=== PATIENT | male | born 1965 | race Caucasian/White ===

== ENCOUNTER → 2017-06-20 | Outpatient (CLI) | payer OTHER ==
--- NOTE | 2017-06-20 15:26 | US ---
EXAMINATION TYPE: US kidneys/renal and bladder DATE OF EXAM: 06/20/2017 COMPARISON: NONE CLINICAL HISTORY: R10.9 LT FLANK PAIN. EXAM MEASUREMENTS: Right Kidney: 12.0 x 5.4 x 4.9 cm Left Kidney: 12.5 x 5.9 x 5.5 cm Post Void Residual Volume: 71.9 mL Right Kidney: No hydronephrosis; lower pole cyst =1.6 x 1.9 x 1.8cm Left Kidney: No hydronephrosis or masses seen Bladder: wnl Bilateral Jets seen: Yes Normal Post Void Residual: No, as is >50.0ml There is no evidence for hydronephrosis at this point in time. No nephrolithiasis is seen. No solid masses are identified. The urinary bladder is anechoic. Bilateral ureteral jets are seen. IMPRESSION: Simple cyst lower pole right kidney. Increased postvoid residual.
--- NOTE | 2017-06-21 08:38 | XR ---
EXAMINATION TYPE: XR lumbosacral spine min 4V DATE OF EXAM: 06/20/2017 CLINICAL HISTORY: Left flank and back pain TECHNIQUE: Frontal, lateral, and oblique images of the lumbar spine are obtained. COMPARISON: None FINDINGS: There are 5 lumbar type vertebral bodies identified with partial sacralization of the L5 v ertebral body and hypoplastic 12th ribs. The lumbar spine shows satisfactory alignment without evide nce of acute fracture or dislocation. Vertebral body heights and disk space heights are within normal limits. Minimal multilevel degenerative changes of the lumbar spine are displayed as small anterior osteophytes and facet arthropathy. The oblique images demonstrate at least mild neural foraminal narr owing at L2-L3 and L4-L5 on the left. The overlying soft tissue appears unremarkable. IMPRESSION: 1. No acute fracture or malalignment is seen in the lumbar spine. 2. Minimal multilevel degenerative disc disease of the lumbar spine.
== END | disposition home or self-care (01) ==
LOC: RADUSWWP 13:59
PROVIDERS: ATTEND Internal Medicine
DX: N28.1 Cyst of kidney, acquired (principal); M54.5 Low back pain
CPT/HCPCS: 72110; 76770

== ENCOUNTER → 2017-06-30 | Outpatient (CLI) | payer OTHER ==
--- NOTE | 2017-06-30 09:32 | CT ---
EXAMINATION TYPE: CT abdomen pelvis w con DATE OF EXAM: 06/30/2017 COMPARISON: NONE INDICATION: Left mid/lower abdominal pain, radiates into back DLP: 850.6 mGycm, Automated exposure control for dose reduction was used. CONTRAST: 100 mL of Omnipaque 300. Study performed with Oral Contrast TECHNIQUE: Axial images were obtained from above the diaphragm to the pubic rami in the axial plane a t 5 mm thick sections. Reconstructed images are reviewed on the computer in the coronal plane. FINDINGS: Limited CT sections are obtained the lung bases. The lung bases are clear. CT ABDOMEN: Liver: Normal Spleen: Normal Pancreas: Normal Adrenal glands: The adrenal glands are normal. Gallbladder: Normal Kidneys: No masses are evident. No hydronephrosis is present. There is a 1.6 cm cyst measuring 10 H [place] units anterior mid inferior pole right kidney. Delayed images were obtained through the ki dneys, which remain unremarkable. Aorta: Vascular calcification is within the aorta. Inferior vena cava: Normal. CT PELVIS: Loops of bowel within the abdomen and pelvis are normal. There are loops of bowel which are incom pletely distended or lack oral contrast limiting their evaluation. Appendix: Normal as visualized. Urinary bladder: Normal. Genitourinary structures: Prostate is prominent. A few calcifications are present. Osseous structures: No suspicious lytic or sclerotic lesions. Facet hypertrophy is present. IMPRESSIONS: 1. No suspicious acute changes to account for left mid or lower quadrant pain.
== END | disposition home or self-care (01) ==
LOC: RADCTMAIN 07:34
PROVIDERS: ATTEND Internal Medicine
DX: R10.12 Left upper quadrant pain (principal); R10.32 Left lower quadrant pain
CPT/HCPCS: 74177; Q9967

== ENCOUNTER 2018-01-31 18:23 | Observation (INO) | payer OTHER ==
--- NOTE | 2018-01-31 19:25 | ED ---
General Adult HPI - General Chief complaint: Shortness of Breath Stated complaint: Sob/dizzy/shoulder pain Time Seen by Provider: 01/31/18 18:52 Source: patient, RN notes reviewed, old records reviewed Mode of arrival: wheelchair Limitations: no limitations - History of Present Illness Initial comments: 52-year-old male presents for evaluation of dyspnea, chest tightness, and right shoulder pain. Patient's right shoulder pain is dull, been constant for the past 2 days. Denies any trauma. Chest tightness has also been present for the past 48 hours. This is nonexertional, unchanged by activity. He does report some mild dyspnea. Denies significant central chest pain. No history of CAD. He does have family history of CAD and is a current smoker. - Related Data Home Medications Medication Instructions Recorded Confirmed Ascorbic Acid [Vitamin C] 500 mg PO DAILY 04/22/16 01/31/18 Aspirin EC [Ecotrin Low Dose] 81 mg PO DAILY 04/22/16 01/31/18 Atorvastatin [Lipitor] 10 mg PO HS 04/22/16 01/31/18 Allergies Allergy/AdvReac Type Severity Reaction Status Date / Time No Known Allergies Allergy Verified 01/31/18 19:44 Review of Systems ROS Statement: Those systems with pertinent positive or pertinent negative responses have been documented in the HPI. ROS Other: All systems not noted in ROS Statement are negative. Past Medical History Past Medical History: Hyperlipidemia History of Any Multi-Drug Resistant Organisms: None Reported Past Surgical History: Orthopedic Surgery Additional Past Surgical History / Comment(s): elbow Past Psychological History: Anxiety Smoking Status: Current every day smoker Past Alcohol Use History: Occasional Past Drug Use History: None Reported General Exam Limitations: no limitations General appearance: alert, in no apparent distress Head exam: Present: atraumatic, normocephalic Eye exam: Present: normal appearance, PERRL ENT exam: Present: normal exam Neck exam: Present: normal inspection. Absent: tenderness, meningismus Respiratory exam: Present: normal lung sounds bilaterally. Absent: respiratory distress, wheezes Cardiovascular Exam: Present: regular rate, normal rhythm GI/Abdominal exam: Present: soft. Absent: distended, tenderness, guarding, rebound Extremities exam: Present: normal inspection, normal capillary refill. Absent: pedal edema Back exam: Present: normal inspection, full ROM Neurological exam: Present: alert, oriented X3, CN II-XII intact. Absent: motor sensory deficit Psychiatric exam: Present: normal affect, normal mood Skin exam: Present: warm, dry, intact. Absent: cyanosis, diaphoretic Course Vital Signs 01/31/18 01/31/18 18:49 19:42 Temperature 98.7 F Pulse Rate 64 Pulse Rate [ 62 Negative Cutter ] Respiratory 20 Rate Blood Pressure 144/95 O2 Sat by Pulse 99 Oximetry EKG Findings - EKG Comments: EKG Findings:: EKG: Normal sinus rhythm, rate of 63, TX interval 166, QRS duration 92, QTC 417, no ST segment elevation or depression Medical Decision Making - Medical Decision Making 52-year-old male presenting with chest tightness, right shoulder pain, and mild dyspnea. Patient is a current smoker, positive family history of CAD and past medical history of hypercholesterolemia. EKG is negative for definitive signs of ischemia, chest x-ray negative for pneumonia or acute cardiopulmonary disease. CBC and CMP are within normal limits. Troponin is negative, d-dimer is within normal limits. Given the patient's risk factors, he will be placed in observation for serial cardiac enzymes, telemetry, and cardiology consultation. - Lab Data Result diagrams: 01/31/18 19:36 01/31/18 19:36 Lab Results 01/31/18 01/31/18 01/31/18 Range/Units 19:36 19:36 19:36 WBC 10.1 (3.8-10.6) k/uL RBC 5.56 (4.30-5.90) m/uL Hgb 16.8 (13.0-17.5) gm/dL Hct 48.0 (39.0-53.0) % MCV 86.5 (80.0-100.0) fL MCH 30.2 (25.0-35.0) pg MCHC 34.9 (31.0-37.0) g/dL RDW 13.1 (11.5-15.5) % Plt Count 275 (150-450) k/uL Neutrophils % 56 % Lymphocytes % 33 % Monocytes % 6 % Eosinophils % 3 % Basophils % 1 % Neutrophils # 5.6 (1.3-7.7) k/uL Lymphocytes # 3.3 (1.0-4.8) k/uL Monocytes # 0.6 (0-1.0) k/uL Eosinophils # 0.3 (0-0.7) k/uL Basophils # 0.1 (0-0.2) k/uL PT (9.0-12.0) sec INR (<1.2) APTT (22.0-30.0) sec D-Dimer (<0.60) mg/L FEU Sodium 140 (137-145) mmol/L Potassium 4.2 (3.5-5.1) mmol/L Chloride 106 (98-107) mmol/L Carbon Dioxide 25 (22-30) mmol/L Anion Gap 9 mmol/L BUN 17 (9-20) mg/dL Creatinine 0.98 (0.66-1.25) mg/dL Est GFR (CKD-EPI)AfAm >90 (>60 ml/min/1.73 sqM) Est GFR (CKD-EPI)NonAf 90 (>60 ml/min/1.73 sqM) Glucose 90 (74-99) mg/dL Calcium 9.6 (8.4-10.2) mg/dL Magnesium 2.0 (1.6-2.3) mg/dL Total Bilirubin 1.2 (0.2-1.3) mg/dL AST 31 (17-59) U/L ALT 50 (21-72) U/L Alkaline Phosphatase 50 (38-126) U/L Total Creatine Kinase 103 (55-170) U/L CK-MB (CK-2) 1.2 (0.0-2.4) ng/mL CK-MB (CK-2) Rel Index 1.2 Troponin I <0.012 (0.000-0.034) ng/mL NT-Pro-B Natriuret Pep pg/mL Total Protein 7.2 (6.3-8.2) g/dL Albumin 4.3 (3.5-5.0) g/dL 01/31/18 01/31/18 Range/Units 19:36 19:36 WBC (3.8-10.6) k/uL RBC (4.30-5.90) m/uL Hgb (13.0-17.5) gm/dL Hct (39.0-53.0) % MCV (80.0-100.0) fL MCH (25.0-35.0) pg MCHC (31.0-37.0) g/dL RDW (11.5-15.5) % Plt Count (150-450) k/uL Neutrophils % % Lymphocytes % % Monocytes % % Eosinophils % % Basophils % % Neutrophils # (1.3-7.7) k/uL Lymphocytes # (1.0-4.8) k/uL Monocytes # (0-1.0) k/uL Eosinophils # (0-0.7) k/uL Basophils # (0-0.2) k/uL PT 9.7 (9.0-12.0) sec INR 1.0 (<1.2) APTT 23.2 (22.0-30.0) sec D-Dimer 0.33 (<0.60) mg/L FEU Sodium (137-145) mmol/L Potassium (3.5-5.1) mmol/L Chloride (98-107) mmol/L Carbon Dioxide (22-30) mmol/L Anion Gap mmol/L BUN (9-20) mg/dL Creatinine (0.66-1.25) mg/dL Est GFR (CKD-EPI)AfAm (>60 ml/min/1.73 sqM) Est GFR (CKD-EPI)NonAf (>60 ml/min/1.73 sqM) Glucose (74-99) mg/dL Calcium (8.4-10.2) mg/dL Magnesium (1.6-2.3) mg/dL Total Bilirubin (0.2-1.3) mg/dL AST (17-59) U/L ALT (21-72) U/L Alkaline Phosphatase (38-126) U/L Total Creatine Kinase (55-170) U/L CK-MB (CK-2) (0.0-2.4) ng/mL CK-MB (CK-2) Rel Index Troponin I (0.000-0.034) ng/mL NT-Pro-B Natriuret Pep 32 pg/mL Total Protein (6.3-8.2) g/dL Albumin (3.5-5.0) g/dL Disposition Clinical Impression: Chest pain Disposition: ADMITTED IP TO THIS [facility] Condition: Stable Is patient prescribed a controlled substance at d/c from ED?: No Referrals: Ben Waller MD [Primary Care Provider] - 1-2 days Time of Disposition: 21:18 Decision to Admit Reason: Admit from EC Decision Date: 01/31/18 Decision Time: 21:18
[2018-01-31 19:48] LABS: Basophils # (A) 0.1 k/uL (0-0.2); Basophils % (A) 1 %; Eosinophils # (A) 0.3 k/uL (0-0.7); Eosinophils % (A) 3 %; HGB 16.8 gm/dL (13.0-17.5); Lymphocytes # (A) 3.3 k/uL (1.0-4.8); Lymphocytes % (A) 33 %; MCH 30.2 pg (25.0-35.0); MCHC 34.9 g/dL (31.0-37.0); MCV 86.5 fL (80.0-100.0); Mean Platelet Volume 6.6; Monocytes # (A) 0.6 k/uL (0-1.0); Monocytes % (A) 6 %; Neutrophils # (A) 5.6 k/uL (1.3-7.7); Neutrophils % (A) 56 %; Platelet Count 275 k/uL (150-450); RBC 5.56 m/uL (4.30-5.90); RDW 13.1 % (11.5-15.5); WBC 10.1 k/uL (3.8-10.6)
[2018-01-31 19:56] LABS: ALT 50 U/L (21-72); AST 31 U/L (17-59); Albumin 4.3 g/dL (3.5-5.0); Alkaline Phosphatase 50 U/L (38-126); Anion Gap 9 mmol/L; Blood Urea Nitrogen 17 mg/dL (9-20); Calcium 9.6 mg/dL (8.4-10.2); Carbon Dioxide 25 mmol/L (22-30); Chloride 106 mmol/L (98-107); Glucose 90 mg/dL (74-99); Potassium 4.2 mmol/L (3.5-5.1); Sodium 140 mmol/L (137-145); Total Bilirubin 1.2 mg/dL (0.2-1.3); Total Protein 7.2 g/dL (6.3-8.2)
--- NOTE | 2018-01-31 20:00 | XR ---
EXAMINATION TYPE: XR chest 2V DATE OF EXAM: 01/31/2018 COMPARISON: January 14, 2015 HISTORY: Chest pain TECHNIQUE: Frontal and lateral views of the chest are obtained. FINDINGS: Heart and mediastinum are normal. Lungs are clear. Diaphragm is normal. Bony thorax appear s normal. IMPRESSION: Normal chest. No change.
[2018-01-31 20:01] LABS: Creatine Kinase 103 U/L (55-170)
[2018-01-31 20:08] LABS: D-Dimer 0.33 mg/L FEU (<0.60); Partial Thromboplastin Time 23.2 sec (22.0-30.0); Prothrombin Time 9.7 sec (9.0-12.0)
[2018-01-31 20:14] LABS: Creatine Kinase MB 1.2 ng/mL (0.0-2.4); Troponin I <0.012 ng/mL (0.000-0.034)
[2018-01-31] MEDS ORDERED: SODIUM CHLORIDE 0.9% 500 ML IV ONE (21:14)
[2018-01-31] MEDS ORDERED: ASPIRIN 325 MG TAB PO STA (21:14)
[2018-01-31] MEDS ORDERED: NALOXONE 0.4 MG/ML 1 ML VIAL IV PRN (21:14)
[2018-01-31] MEDS ORDERED: ONDANSETRON 4 MG/2 ML VIAL IVP PRN (21:14)
[2018-01-31 22:21] VITALS: BMI 26.9
[2018-01-31] MEDS ORDERED: ATORVASTATIN 10 MG TAB PO STA (22:25)
[2018-01-31] MEDS: ACETAMINOPHEN TAB 325 MG TAB PO PRN (22:44)
[2018-01-31] MEDS: NICOTINE 21MG/24HR PATCH TRANSDERM SCH (22:44)
[2018-01-31] MEDS ORDERED: MORPHINE SULFATE 2 MG/ML SYRINGE IVP PRN (23:55)
[2018-02-01 01:55] LABS: Creatine Kinase 84 U/L (55-170)
[2018-02-01 02:05] LABS: Creatine Kinase MB 1.3 ng/mL (0.0-2.4)
[2018-02-01 02:07] LABS: Troponin I <0.012 ng/mL (0.000-0.034)
[2018-02-01 07:47] LABS: Creatine Kinase 77 U/L (55-170)
[2018-02-01 07:56] VITALS: RESP 18
[2018-02-01 07:58] LABS: Creatine Kinase MB 1.2 ng/mL (0.0-2.4); Troponin I <0.012 ng/mL (0.000-0.034)
[2018-02-01] MEDS ORDERED: ASPIRIN 81 MG PO SCH (09:00)
[2018-02-01 09:22] LABS: ALT 45 U/L (21-72); AST 33 U/L (17-59); Albumin 3.6 g/dL (3.5-5.0); Alkaline Phosphatase 45 U/L (38-126); Anion Gap 8 mmol/L; Basophils # (A) 0.1 k/uL (0-0.2); Basophils % (A) 1 %; Blood Urea Nitrogen 16 mg/dL (9-20); Calcium 9.3 mg/dL (8.4-10.2); Carbon Dioxide 25 mmol/L (22-30); Chloride 108 mmol/L (98-107); Eosinophils # (A) 0.3 k/uL (0-0.7); Eosinophils % (A) 4 %; Glucose 106 mg/dL (74-99); HGB 16.3 gm/dL (13.0-17.5); Lymphocytes # (A) 2.1 k/uL (1.0-4.8); Lymphocytes % (A) 28 %; MCH 29.2 pg (25.0-35.0); MCHC 33.2 g/dL (31.0-37.0); MCV 87.9 fL (80.0-100.0); Mean Platelet Volume 7.1; Monocytes # (A) 0.5 k/uL (0-1.0); Monocytes % (A) 7 %; Neutrophils # (A) 4.3 k/uL (1.3-7.7); Neutrophils % (A) 58 %; Platelet Count 254 k/uL (150-450); Potassium 4.6 mmol/L (3.5-5.1); RBC 5.57 m/uL (4.30-5.90); RDW 13.3 % (11.5-15.5); Sodium 141 mmol/L (137-145); Total Bilirubin 1.4 mg/dL (0.2-1.3); Total Protein 6.4 g/dL (6.3-8.2); WBC 7.5 k/uL (3.8-10.6)
[2018-02-01] MEDS ORDERED: ALPRAZolam 0.5 MG TAB PO PRN (09:43)
[2018-02-01] MEDS ORDERED: ALPRAZolam 0.25 MG TAB PO PRN (09:43)
[2018-02-01] MEDS ORDERED: NITROGLYCERIN SL TABS 0.4 MG TAB SUBLINGUAL PRN (09:43)
[2018-02-01] MEDS ORDERED: SODIUM CHLORIDE 0.9% 1,000 ML in EMPTY BAG 1 BAG IV ONE (09:43)
[2018-02-01] MEDS ORDERED: ASPIRIN 325 MG TAB PO ONE (10:00)
[2018-02-01] MEDS: NICOTINE 21MG/24HR PATCH TRANSDERM SCH (10:01)
--- NOTE | 2018-02-01 10:15 | P.HPIM ---
History of Present Illness H&P Date: 02/01/18 Chief Complaint: Chest Pain This is a 52-year-old male patient who presented to the emergency room with intermittent chest pain that has been occurring since Monday. Patient said states that he's also been having dyspnea with the pain. Patient states his father had open heart surgery at 50. Patient's medical history includes smoker , hyperlipidemia and anxiety. Chest x-ray completed emergency room showing normal chest no change. Troponins have been negative. EKG completed showing normal sinus rhythm. Normal EKG. D-dimer 0.33. Cardiology services consulted. 2-D echo has been ordered. Per cardiology patient will have cardiac catheterization today. At this time patient is continuing to have intermittent chest pain. Does complain of some dyspnea. Patient denies nausea vomiting or diarrhea. Patient denies any urinary burning or frequency. Review of Systems Please refer to HPI otherwise unremarkable Past Medical History Past Medical History: Hyperlipidemia History of Any Multi-Drug Resistant Organisms: None Reported Past Surgical History: Orthopedic Surgery Additional Past Surgical History / Comment(s): elbow Past Anesthesia/Blood Transfusion Reactions: No Reported Reaction Smoking Status: Current every day smoker - Past Family History Mother Family Medical History: No Reported History Father Additional Family Medical History / Comment(s): Heart blockage and Parkinsons. Quadruple bypass surgery Medications and Allergies Home Medications Medication Instructions Recorded Confirmed Type Ascorbic Acid [Vitamin C] 500 mg PO DAILY 04/22/16 01/31/18 History Aspirin EC [Ecotrin Low Dose] 81 mg PO DAILY 04/22/16 01/31/18 History Atorvastatin [Lipitor] 10 mg PO HS 04/22/16 01/31/18 History Ranitidine HCl [Zantac] 150 mg PO BID 01/31/18 01/31/18 History Allergies Allergy/AdvReac Type Severity Reaction Status Date / Time No Known Allergies Allergy Verified 01/31/18 22:11 Physical Exam Vitals: Vital Signs Temp Pulse Pulse Pulse Resp BP BP 02/01/18 07:35 97.9 F 48 L 18 142/74 02/01/18 04:00 16 02/01/18 03:29 97.7 F 60 16 138/82 02/01/18 00:00 16 01/31/18 22:30 16 01/31/18 22:09 97.4 F L 55 L 16 156/83 01/31/18 21:38 57 L 18 147/89 01/31/18 19:42 62 01/31/18 18:49 98.7 F 64 20 144/95 Pulse Ox 02/01/18 07:35 97 02/01/18 04:00 02/01/18 03:29 97 02/01/18 00:00 01/31/18 22:30 01/31/18 22:09 96 01/31/18 21:38 96 01/31/18 19:42 01/31/18 18:49 99 Intake and Output 01/31/18 02/01/18 02/01/18 22:59 06:59 14:59 Intake Total 500 Balance 500 Intake: Amount of Fluid Infused ( 500 ml) Other: # Voids 1 1 Weight 95.2 kg Head normocephalic Neck supple Lungs clear to auscultation bilaterally no wheezing or crackles Heart regular rate and rhythm S1-S2, no rub or gallop Abdomen is soft nontender nondistended positive bowel sounds no hepatosplenomegaly Extremities no edema Neuro alert and orientated to 3 Results CBC & Chem 7: 02/01/18 06:48 02/01/18 06:48 Labs: Abnormal Lab Results - Last 24 Hours (Table) 02/01/18 Range/Units 06:48 Chloride 108 H (98-107) mmol/L Glucose 106 H (74-99) mg/dL Total Bilirubin 1.4 H (0.2-1.3) mg/dL Thrombosis Risk Factor Assmnt - Choose All That Apply Each Factor Represents 1 point: Age 41-60 years Thrombosis Risk Factor Assessment Total Risk Factor Score: 1 Thrombosis Risk Factor Assessment Level: Low Risk Assessment and Plan Assessment: 1. Chest pain and dyspnea. Chest x-ray negative. EKG showing normal sinus rhythm. Troponins negative. Patient does have a significant family history of coronary artery disease. Cardiology services following. 2-D echo has been ordered. Patient will have cardiac catheterization today per cardiology 2. Nicotine dependence. Patient educated greater than 3 minutes on smoking cessation. Nicotine patch has been ordered 3. Hyperlipidemia. Continue Lipitor If Cardiac catheterization is clean patient may be able to go home later today per cardiology. GI prophylaxis Pepcid Time with Patient: Greater than 30 (Greater than 60% of the total time spent in counseling and coordination of care. I performed an examination of the patient and discussed their management with the Nurse Practitioner. I have reviewed the Nurse Practitioner's notes and agree with the documented findings and plan of care)
--- NOTE | 2018-02-01 10:22 | P.CRDCN ---
History of Present Illness History of present illness: Mr. Quintanilla is a pleasant 52-year-old male past medical history significant for dyslipidemia, anxiety and chronic nicotine dependence. He denies personal history of coronary artery disease however his father had quadruple bypass surgery a the age of 51. We have been asked to see him in consultation for chest pain. 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 The symptoms had no specific aggravating factor. He states he had these symptoms again intermittently over the next couple of days. The pain in the right shoulder has been constant since it first came on Monday. They seemed to come on when he was exerting himself but didn't improve when he sat down to rest. He was attributing them to the heat. However, they continued to intermittent return over the next couple of days. Denies palpitations, nausea, vomiting or diaphoresis. He does also feel as if he has been increasing hot the last couple days but again attributed that to the heat. EKG reveals sinus mechanism with no acute ST or T wave abnormalities noted. Chest x-ray is negative for an acute cardiopulmonary process. Laboratory data reviewed, hemoglobin 16.3, platelets 254, d-dimer 0.33, sodium 141, potassium 4.6, creatinine 0.9 to, magnesium 2.0, cardiac enzymes negative 3, NT proBNP is 32. Patient states he has never had a stress test, echocardiogram and heart catheterization in the past. Review of Systems At the time of my exam: CONSTITUTIONAL: Denies fever. Denies chills. EYES: Denies blurred vision. Denies vision changes. Denies eye pain. EARS, NOSE, MOUTH & THROAT: Denies headache. Denies sore throat. Denies ear pain. CARDIOVASCULAR: Denies chest pain. Denies shortness of breath. Denies orthopnea. Denies PND. Denies palpitations. RESPIRATORY: Denies cough. GASTROINTESTINAL: Denies abdominal pain. Denies diarrhea. Denies constipation. Denies nausea. Denies vomiting. MUSCULOSKELETAL: Denies myalgias. INTEGUMENTARY: Denies pruitis. Denies rash. NEUROLOGIC: Denies numbness. Denies tingling. Denies weakness. PSYCHIATRIC: Denies anxiety. Denies depression. ENDOCRINE: Denies fatigue. Denies weight change. Denies polydipsia. Denies polyurina. GENITOURINARY: Denies burning, hematuria or urgency with micturation. HEMATOLOGIC: Denies history of anemia. Denies bleeding. Past Medical History Past Medical History: Hyperlipidemia History of Any Multi-Drug Resistant Organisms: None Reported Past Surgical History: Orthopedic Surgery Additional Past Surgical History / Comment(s): elbow Past Anesthesia/Blood Transfusion Reactions: No Reported Reaction Smoking Status: Current every day smoker - Past Family History Mother Family Medical History: No Reported History Father Additional Family Medical History / Comment(s): Heart blockage and Parkinsons. Quadruple bypass surgery Medications and Allergies Home Medications Medication Instructions Recorded Confirmed Type Ascorbic Acid [Vitamin C] 500 mg PO DAILY 04/22/16 01/31/18 History Aspirin EC [Ecotrin Low Dose] 81 mg PO DAILY 04/22/16 01/31/18 History Atorvastatin [Lipitor] 10 mg PO HS 04/22/16 01/31/18 History Ranitidine HCl [Zantac] 150 mg PO BID 01/31/18 01/31/18 History Allergies Allergy/AdvReac Type Severity Reaction Status Date / Time No Known Allergies Allergy Verified 01/31/18 22:11 Physical Exam Vitals: Vital Signs Temp Pulse Pulse Pulse Resp BP BP 02/01/18 07:35 97.9 F 48 L 18 142/74 02/01/18 04:00 16 02/01/18 03:29 97.7 F 60 16 138/82 02/01/18 00:00 16 01/31/18 22:30 16 01/31/18 22:09 97.4 F L 55 L 16 156/83 01/31/18 21:38 57 L 18 147/89 01/31/18 19:42 62 01/31/18 18:49 98.7 F 64 20 144/95 Pulse Ox 02/01/18 07:35 97 02/01/18 04:00 02/01/18 03:29 97 02/01/18 00:00 01/31/18 22:30 01/31/18 22:09 96 01/31/18 21:38 96 01/31/18 19:42 01/31/18 18:49 99 Intake and Output 09/19/18 09/20/18 09/20/18 22:59 06:59 14:59 Intake Total 500 Balance 500 Intake: Amount of Fluid Infused ( 500 ml) Other: # Voids 1 1 Weight 95.2 kg Blood pressure 142/74 heart rate 48 afebrile maintaining oxygen saturation on room air GENERAL: This is a 52-year-old male in no apparent distress at the time of my examination. HEENT: Head is atraumatic, normocephalic. Pupils are equal, round. Sclerae anicteric. Conjunctivae are clear. Mucous membranes of the mouth are moist. Neck is supple. There is no jugular venous distention. No carotid bruit is heard. LUNGS: Clear to auscultation no wheezes, rales or rhonchi. No chest wall tenderness is noted on palpation or with deep breathing. HEART: Regular rate and rhythm without murmurs, rubs or gallops. S1 and S2 heard. ABDOMEN: Soft, nontender. Bowel sounds are heard. No organomegaly noted. EXTREMITIES: No evidence of peripheral edema and no calf tenderness noted. VASCULAR: Radial and dorsalis pedis pulses palpated, no evidence of clubbing. NEUROLOGIC: Patient is awake, alert and oriented x3. Results 02/01/18 06:48 02/01/18 06:48 Cardiac Enzymes 01/31/18 01/31/18 02/01/18 Range/Units 19:36 19:36 00:54 AST 31 (17-59) U/L CK-MB (CK-2) 1.2 1.3 (0.0-2.4) ng/mL Troponin I <0.012 <0.012 (0.000-0.034) ng/mL 02/01/18 Range/Units 06:48 AST (17-59) U/L CK-MB (CK-2) 1.2 (0.0-2.4) ng/mL Troponin I <0.012 (0.000-0.034) ng/mL Coagulation 01/31/18 Range/Units 19:36 PT 9.7 (9.0-12.0) sec APTT 23.2 (22.0-30.0) sec CBC 01/31/18 Range/Units 19:36 WBC 10.1 (3.8-10.6) k/uL RBC 5.56 (4.30-5.90) m/uL Hgb 16.8 (13.0-17.5) gm/dL Hct 48.0 (39.0-53.0) % Plt Count 275 (150-450) k/uL Comprehensive Metabolic Panel 01/31/18 Range/Units 19:36 Sodium 140 (137-145) mmol/L Potassium 4.2 (3.5-5.1) mmol/L Chloride 106 (98-107) mmol/L Carbon Dioxide 25 (22-30) mmol/L BUN 17 (9-20) mg/dL Creatinine 0.98 (0.66-1.25) mg/dL Glucose 90 (74-99) mg/dL Calcium 9.6 (8.4-10.2) mg/dL AST 31 (17-59) U/L ALT 50 (21-72) U/L Alkaline Phosphatase 50 (38-126) U/L Total Protein 7.2 (6.3-8.2) g/dL Albumin 4.3 (3.5-5.0) g/dL Current Medications Generic Name Dose Route Start Last Admin Trade Name Fre PRN Reason Stop Dose Admin Acetaminophen 650 mg 01/31/18 21:14 01/31/18 22:44 Tylenol Tab PO 650 mg Q6HR PRN Administration Mild Pain or Fever > 100.5 Aspirin 81 mg 02/01/18 09:00 Aspirin PO DAILY [facility] Atorvastatin Calcium 10 mg 02/01/18 21:00 Lipitor PO HS [facility] Morphine Sulfate 1 mg 01/31/18 23:55 02/01/18 06:13 Morphine Sulfate (Inj) IVP 1 mg Q3H PRN Administration Pain/Discomfort Naloxone HCl 0.2 mg 01/31/18 21:14 Narcan IV Q2M PRN Opioid Reversal Nicotine 1 patch 01/31/18 22:30 01/31/18 22:44 Habitrol 21mg/24hr Patch TRANSDERM 1 patch DAILY [facility] Administration Ondansetron HCl 4 mg 01/31/18 21:14 Zofran IVP Q8HR PRN Nausea And Vomiting Intake and Output 01/31/18 02/01/18 02/01/18 22:59 06:59 14:59 Intake Total 500 Balance 500 Intake: Amount of Fluid Infused ( 500 ml) Other: # Voids 1 1 Weight 95.2 kg 01/31/18 19:36 01/31/18 19:36 Assessment and Plan Assessment: ASSESSMENT Unstable angina Dyslipidemia Chronic nicotine dependence Strong family history of premature coronary artery disease PLAN Obtain 2D echocardiogram and doppler study to assess cardiac structure and function. We recommend proceeding with cardiac catheterization for further assessment of coronary artery disease. I have discussed the risks, benefits and alternative therapies for the above-mentioned procedure and for both sedation/analgesia as well as necessary blood product administration, if indicated, as they pertain to this patient. The patient has indicated understanding and acceptance of the risks and procedures discussed. Questions have been answered appropriately and he is agreeable to proceed with above stated procedure. Further recommendations to follow based on cath findings. Thank you kindly for this consultation. Nurse Practitioner note has been reviewed, I agree with a documented findings and plan of care. Patient was seen and examined.
[2018-02-01] MEDS ORDERED: IV FLUID CONTINUATION 1,000 ML IV ONE (11:04)
[2018-02-01] MEDS ORDERED: fentaNYL (PF) 50 MCG/ML 2 ML AMP ONE (11:10)
[2018-02-01] MEDS ORDERED: MIDAZOLAM 2 MG/2 ML VIAL ONE (11:11)
[2018-02-01] MEDS ORDERED: MIDAZOLAM 2 MG/2 ML VIAL IV ONE (11:16)
[2018-02-01] MEDS ORDERED: fentaNYL (PF) 50 MCG/ML 2 ML AMP IV ONE (11:16)
[2018-02-01] MEDS ORDERED: LIDOCAINE 2% SYG (PF) 100 MG/5 ML MISCELLANE ONE (11:20)
[2018-02-01] MEDS ORDERED: IOPAMIDOL-370 125ML BTL INJ ONE (11:32)
[2018-02-01] MEDS ORDERED: RX INFO: IV CONTRAST WAS GIVEN 1 EACH MISC MISCELLANE PRN (11:41)
[2018-02-01] MEDS ORDERED: SODIUM CHLORIDE 0.9% 1,000 ML IV SCH (11:45)
--- NOTE | 2018-02-01 11:47 | P.PCN ---
Date of Procedure: 02/01/18 Preoperative Diagnosis: Chest tightness and dizziness Postoperative Diagnosis: Normal coronary arteries and normal LV function Procedure(s) Performed: Left heart catheterization with left ventriculography Description of Procedure: HISTORY: This is a 52-year-old gentleman with history of smoking and strong family history of ischemic heart disease who was admitted to the hospital with recurrent episodes of chest tightness and dizziness. His EKGs and cardiac enzymes are negative. He is given the option of having a stress test or cardiac catheterization. Patient and family preferred to have a cardiac catheterization CONSENT:I have discussed the risks, benefits and alternative therapies for the above-mentioned procedure and for both sedation/analgesia as well as necessary blood product administration, if indicated, as they pertain to this patient. The patient has indicated understanding and acceptance of the risks and procedures discussed. PROCEDURE: Patient was brought to the lab in a fasting state. Patient was given some IV sedation. The right groin is infiltrated with lidocaine and right femoral artery was entered using Seldinger technique. A 6-Serbian catheter was left in place and selective coronary arteriography and left ventriculography was performed. Patient tolerated the procedure well. Femoral angiogram was performed and Angio-Seal was applied for hemostasis. No immediate complications were noted and patient was transferred to [facility] in a stable condition Conscious Sedation: Versed 2mg Fentanyl 50 g Duration 16minutes HEMODYNAMICS: The aortic pressure is 130/60. Left ankle end-diastolic pressure is about 12. There was no gradient across the aortic valve SELECTIVE CORONARY ARTERIOGRAPHY: LEFT MAIN: Short and patent THE LEFT ANTERIOR DESCENDING CORONARY ARTERY:. This is a good caliber vessel giving rise to good-sized diagonal branch. The LAD and branches are free of occlusive disease THE LEFT CIRCUMFLEX AND IS CORONARY ARTERY:. This is a good caliber vessel giving rise good-sized OM branch and AV groove segment. There is also second OM branch. The circumflex and branches are free of occlusive disease THE RIGHT CORONARY ARTERY:. This a moderate caliber vessel giving rise to small to moderate caliber PDA and. Free of occlusive disease. This is a codominant vessel LEFT VENTRICULOGRAPHY: Revealed normal-sized cardiac silhouette with good systolic function FINAL IMPRESSION: Normal coronary arteries. Normal LV function PLAN:. Risk factor modification. Further evaluation of symptoms by GI department PROGNOSIS: Good
[2018-02-01 12:23] VITALS: TEMP 97.2
--- NOTE | 2018-02-01 13:03 | ECHOF ---
Referral Reason:cp, sob, dizzy MEASUREMENTS -------- HEIGHT: 182.9 cm WEIGHT: 94.8 kg BP: RVIDd: 3.2 cm (< 3.3) IVSd: 0.9 cm (0.6 - 1.1) LVIDd: 5.4 cm (3.9 - 5.3) LVPWd: 1.2 cm (0.6 - 1.1) IVSs: 1.6 cm LVIDs: 2.6 cm LVPWs: 1.9 cm LAESV Index (A-L): 17.90 ml/m Ao Diam: 3.5 cm (2.0 - 3.7) AV Cusp: 2.3 cm (1.5 - 2.6) LA Diam: 3.8 cm (2.7 - 3.8) MV EXCURSION: 18.395 mm (> 18.000) MV EF SLOPE: 111 mm/s (70 - 150) EPSS: 0.8 cm MV E Fidel: 1.00 m/s MV DecT: 202 ms MV A Fidel: 0.90 m/s MV E/A Ratio: 1.10 RAP: 5.00 mmHg RVSP: 12.32 mmHg FINDINGS -------- Sinus rhythm. This was a technically good study. The left ventricular size is normal. There is borderline concentric left ventricular hypertrophy. Overall left ventricular systolic function is normal with, an EF between 55 - 60 %. The right ventricle is normal in size and function. The left atrium is normal in size. The right atrium is normal in size. The aortic valve is trileaflet, and appears structurally normal. No aortic stenosis or regurgitation. There is trace mitral regurgitation. Trace tricuspid regurgitation present. The right ventricular systolic pressure, as measured by Dopp ler, is 12.32mmHg. Pulmonic valve appears structurally normal. The aortic root size is normal. Normal inferior vena cava with normal inspiratory collapse consistent with estimated right atrial pre ssure of 5 mmHg. The pericardium is normal. CONCLUSIONS -------- 1. Sinus rhythm. 2. This was a technically good study. 3. The left ventricular size is normal. 4. There is borderline concentric left ventricular hypertrophy. 5. Overall left ventricular systolic function is normal with, an EF between 55 - 60 %. 6. The right ventricle is normal in size and function. 7. The left atrium is normal in size. 8. The right atrium is normal in size. 9. The aortic valve is trileaflet, and appears structurally normal. No aortic stenosis or regurgitati on. 10. There is trace mitral regurgitation. 11. Trace tricuspid regurgitation present. 12. The right ventricular systolic pressure, as measured by Doppler, is 12.32mmHg. 13. Pulmonic valve appears structurally normal. 14. The aortic root size is normal. 15. Normal inferior vena cava with normal inspiratory collapse consistent with estimated right atrial pressure of 5 mmHg. 16. The pericardium is normal. DRIVEMATIC MACHINE OPERATOR: Jaleesa Bravo RDCS
--- NOTE | 2018-02-01 13:22 | P.DS ---
Providers Date of admission: 01/31/18 21:14 Expected date of discharge: 02/01/18 Attending physician: Ben Waller Consults: 01/31/18 21:15 Consult Physician Routine Consulting Provider: Mike Cotto Consult Reason/Comments: Chest Pain Do you want consulting provider notified?: Yes Primary care physician: Ben Sridhar [facility] Course: Discharge diagnosis 1. Chest pain and dyspnea. Chest x-ray negative. EKG showing normal sinus rhythm. Troponins negative. Patient does have a significant family history of coronary artery disease. Cardiology services following. 2-D echo has been ordered. Patient will have cardiac catheterization today per cardiology. 2-D echo completed showing EF between the 55-60%. Patient had cardiac catheterization today. Heart catheterization completed showing normal coronary arteries and normal LV function. Patient has been cleared for discharge from cardiology standpoint. Patient to be discharged after postcardiac cath clearance. 2. Nicotine dependence. Patient educated greater than 3 minutes on smoking cessation. Nicotine patch has been ordered. Patient will be discharged home on nicotine patch 3. Hyperlipidemia. Continue Lipitor Hospital course This is a 52-year-old male patient who presented to the emergency room with intermittent chest pain that has been occurring since Monday. Patient said states that he's also been having dyspnea with the pain. Patient states his father had open heart surgery at 50. Patient's medical history includes smoker , hyperlipidemia and anxiety. Chest x-ray completed emergency room showing normal chest no change. Troponins have been negative. EKG completed showing normal sinus rhythm. Normal EKG. D-dimer 0.33. Cardiology services consulted. 2-D echo has been ordered. Per cardiology patient will have cardiac catheterization today. At this time patient is continuing to have intermittent chest pain. Does complain of some dyspnea. Patient denies nausea vomiting or diarrhea. Patient denies any urinary burning or frequency. On 02/01/2018 patient is status post cardiac catheterization. Heart cath completed showing normal coronary arteries and normal LV function. Patient to be cleared for discharge on postcardiac cath clearance. At this time patient denies chest pain or shortness of breath. Patient denies nausea vomiting or diarrhea. Patient denies any urinary symptoms. Patient to follow-up outpatient with cardiology. Patient to follow-up closely with primary care provider. I performed an examination of the patient and discussed their management with the Nurse Practitioner. I have reviewed the Nurse Practitioner's notes and agree with the documented findings and plan of care. Patient Condition at Discharge: Stable Plan - Discharge Summary New Discharge Prescriptions: New Nicotine 21Mg/24Hr Patch [Habitrol] 1 patch TRANSDERM DAILY #30 patch Continue Atorvastatin [Lipitor] 10 mg PO HS Aspirin EC [Ecotrin Low Dose] 81 mg PO DAILY Ascorbic Acid [Vitamin C] 500 mg PO DAILY Ranitidine HCl [Zantac] 150 mg PO BID Discharge Medication List Ascorbic Acid [Vitamin C] 500 mg PO DAILY 04/22/16 [History] Aspirin EC [Ecotrin Low Dose] 81 mg PO DAILY 04/22/16 [History] Atorvastatin [Lipitor] 10 mg PO HS 04/22/16 [History] Ranitidine HCl [Zantac] 150 mg PO BID 01/31/18 [History] Nicotine 21Mg/24Hr Patch [Habitrol] 1 patch TRANSDERM DAILY #30 patch 02/01/18 [ Rx] Follow up Appointment(s)/Referral(s): Ben Waller MD [Primary Care Provider] - 1-2 days Peter Larson MD [STAFF PHYSICIAN] - 02/09/18 10:30 am Patient Instructions/Handouts: *Surgery [facility] - After Heart Catheterization - [facility] [employer] Instructions, Chest Pain (ED) Care Plan Goals (MU): Diet heart healthy Discharge Disposition: HOME SELF-CARE
[2018-02-01] MEDS: ACETAMINOPHEN TAB 325 MG TAB PO PRN (14:01)
[2018-02-01 15:23] VITALS: BP 123/72; PULSE 60
[2018-02-01] MEDS ORDERED: ATORVASTATIN 10 MG TAB PO SCH (21:00)
[2018-02-02] MEDS ORDERED: FAMOTIDINE 20 MG TAB PO SCH (09:00)
[2018-02-02] MEDS ORDERED: ASPIRIN 81 MG PO SCH (09:00)
== END 2018-02-01 18:50 | disposition home or self-care (01) ==
LOC: EC 18:23 → 3OBS 21:14
PROVIDERS: ADMIT Internal Medicine; ATTEND Internal Medicine
DX: R07.89 Other chest pain (principal); M25.511 Pain in right shoulder; R06.00 Dyspnea, unspecified; R42 Dizziness and giddiness; E78.5 Hyperlipidemia, unspecified; F41.9 Anxiety disorder, unspecified; F17.200 Nicotine dependence, unspecified, uncomplicated; E78.00 Pure hypercholesterolemia, unspecified; Z79.82 Long term (current) use of aspirin; Z79.899 Other long term (current) drug therapy; Z82.0 Family history of epilepsy and other diseases of the nervous system; Z82.49 Family history of ischemic heart disease and other diseases of the circulatory system
CPT/HCPCS: 99285 ×2; 96361 ×2; 96374; 36415; 93005; 93306; 93458; 85379; 83880; 80053 ×2; 82550 ×2; 82553 ×2; 83735; 84484 ×2; 85025 ×2; 85610; 85730; 71046; G0378 ×2; C1894; C1769; S4990 ×2; J2250; J2001; J3010; J2270; Q9967

== ENCOUNTER 2019-12-15 11:14 | Emergency (ER) | payer OTHER ==
[2019-12-15 11:21] VITALS: BP 145/84; PULSE 57; RESP 20; TEMP 98.2
--- NOTE | 2019-12-15 11:50 | XR ---
EXAMINATION TYPE: XR foot complete LT , 3 VIEWS DATE OF EXAM ORDERED: 12/15/2019 HISTORY: pain. COMPARISON: None. FINDINGS: There are mild degenerative changes in the left first MTP joint. There are small plantar A chilles calcaneal spurs. No fracture or dislocation is seen. No osseous destructive lesion is seen. IMPRESSION: 1. NO ACUTE OSSEOUS LESION. 2. DEGENERATIVE CHANGE.
--- NOTE | 2019-12-15 12:02 | ED ---
General Adult HPI - General Chief complaint: Extremity Injury, Lower Stated complaint: toe injury Time Seen by Provider: 12/15/19 11:26 Source: patient, RN notes reviewed, old records reviewed Mode of arrival: ambulatory Limitations: no limitations - History of Present Illness Initial comments: 54-year-old male patient previously for evaluation of right foot injury. Patient reports that he was working with a large tree approximately 12 inches in diameter which was hanging on a portion of a back endloader approximately 30 inches off the ground he is putting with a chainsaw. Patient reports it that rolled off and on his right foot. This occurred yesterday. Patient complaining of pain on the first 3 toes. There is only on his foot momentarily. Denies any other acute complaints. Systemic: Pt denies fatigue, fever/chills, rash. Pt denies weakness, night sweats, weight loss. Neuro: Pt denies headache, visual disturbances, syncope or pre-syncope. HEENT: Pt denies ocular discharge or irritation, otalgia, rhinorrhea, pharyngitis or notable lymphadenopathy. Cardiopulmonary: Pt denies chest pain, SOB, heart palpitations, dyspnea on exertion. Abdominal/GI: Pt denies abdominal pain, n/v/d. : Pt denies dysuria, burning w/ urination, frequency/urgency. Denies new onset urinary or bowel incontinence. MSK: Pt denies myalgia, loss of strength or function in extremities. Neuro: Pt denies new onset weakness, paresthesias. - Related Data Home Medications Medication Instructions Recorded Confirmed Ascorbic Acid [Vitamin C] 500 mg PO DAILY 04/22/16 01/31/18 Aspirin EC [Ecotrin Low Dose] 81 mg PO DAILY 04/22/16 01/31/18 Atorvastatin [Lipitor] 10 mg PO HS 04/22/16 01/31/18 Ranitidine HCl [Zantac] 150 mg PO BID 01/31/18 01/31/18 Previous Rx's Medication Instructions Recorded Nicotine 21Mg/24Hr Patch [Habitrol] 1 patch TRANSDERM DAILY #30 patch 02/01/18 Allergies Allergy/AdvReac Type Severity Reaction Status Date / Time No Known Allergies Allergy Verified 12/15/19 11:20 Review of Systems ROS Statement: Those systems with pertinent positive or pertinent negative responses have been documented in the HPI. ROS Other: All systems not noted in ROS Statement are negative. Past Medical History Past Medical History: Hyperlipidemia History of Any Multi-Drug Resistant Organisms: None Reported Past Surgical History: Orthopedic Surgery Additional Past Surgical History / Comment(s): elbow Past Anesthesia/Blood Transfusion Reactions: No Reported Reaction Past Psychological History: Anxiety Smoking Status: Current every day smoker Past Alcohol Use History: Occasional Past Drug Use History: None Reported - Past Family History Mother Family Medical History: No Reported History Father Additional Family Medical History / Comment(s): Heart blockage and Parkinsons. Quadruple bypass surgery General Exam - General Exam Comments Initial Comments: Constitutional: NAD, AOX3, Pt has pleasant affect. HEENT: NC/AT, trachea midline, neck supple, no lymphadenopathy. External ears appear normal, without discharge. Mucous membranes moist. EOM intact. There is no scleral icterus. No pallor noted. Cardiopulmonary: RRR, no murmurs, rubs or gallops, no JVD noted. Lungs CTAB in anterior and posterior carpenter. No peripheral edema. Neuro: CN II-XII grossly intact. No nuchal rigidity. No raccon eyes, no westbrook sign, no hemotympanum. No cervical spinal tenderness. MSK: Mild amount of tenderness to distal MTP joints 1 through 3. Range of motion is intact. Cap refill less than 2 seconds. Mild amount of ecchymoses are noted. Distal pulses are intact and equal. Patient placed in a posterior ankle splint and neurovascular intact before and after splint placement. No posterior calf tenderness bilaterally, homans sign negative bilaterally. Posterior tibialis and radial pulse +2 bilaterally. Sensation intact in upper and lower extremities. Full active ROM in upper and lower extremities, 5/5 stregnth. Compartments are soft and compressible. Limitations: no limitations Course Vital Signs 12/15/19 11:19 Temperature 98.2 F Pulse Rate 57 L Respiratory 20 Rate Blood Pressure 145/84 O2 Sat by Pulse 99 Oximetry Procedures - Orthopedic Splinting/Casting Injury #1 Side: right Lower Extremity Injury Location: short leg, ankle Medical Decision Making - Medical Decision Making 54-year-old male patient presents ED for evaluation of left foot injury which occurred yesterday. Patient has pain distal aspect of right first through third metatarsal phalangeal joints. The plain films are negative. Patient unable to bear ankle. Patient placed in a posterior ankle splint will discharge the patient orthopedic and primary care follow-up. Case discussed with Dr. Contreras. Disposition Clinical Impression: Foot sprain Disposition: HOME SELF-CARE Condition: Stable Instructions (If sedation given, give patient instructions): Foot Sprain (ED) Additional Instructions: continue to wear foot splint. Use crutches do not bear weight on left lower extremity. Follow-up with orthopedic consult tomorrow. Follow up with primary care provider in 1-2 days. Return to ER if any worsening symptoms. Is patient prescribed a controlled substance at d/c from ED?: No Referrals: None,Stated [Primary Care Provider] - 1-2 days Rachel De La Cruz DO [Doctor of Osteopathic Medicine] - 1-2 days Elliot Mccann [STAFF PHYSICIAN] - 1-2 days
== END 2019-12-15 12:21 | disposition home or self-care (01) ==
LOC: EC 11:14
DX: S93.601A Unspecified sprain of right foot, initial encounter (principal); E78.5 Hyperlipidemia, unspecified; F17.200 Nicotine dependence, unspecified, uncomplicated; Z79.899 Other long term (current) drug therapy; Z79.82 Long term (current) use of aspirin; W22.8XXA Striking against or struck by other objects, initial encounter; Y93.89 Activity, other specified; Y92.009 Unspecified place in unspecified non-institutional (private) residence as the place of occurrence of the external cause
CPT/HCPCS: 29515; 99284

== ENCOUNTER 2020-08-10 12:12 | Observation (INO) | payer OTHER ==
[2020-08-10 12:56] LABS: Basophils % (A) 1 %; Eosinophils # (A) 0.1 k/uL (0-0.7); Eosinophils % (A) 1 %; HGB 16.8 gm/dL (13.0-17.5); Lymphocytes # (A) 2.2 k/uL (1.0-4.8); Lymphocytes % (A) 24 %; MCH 32.3 pg (25.0-35.0); MCHC 36.5 g/dL (31.0-37.0); MCV 88.6 fL (80.0-100.0); Monocytes # (A) 0.4 k/uL (0-1.0); Monocytes % (A) 5 %; Neutrophils # (A) 6.1 k/uL (1.3-7.7); Neutrophils % (A) 68 %; Platelet Count 239 k/uL (150-450); RDW 12.2 % (11.5-15.5)
[2020-08-10 13:01] LABS: ALT 63 U/L (4-49); AST 35 U/L (17-59); African American GFR (CKD) >90 (>60 ml/min/1.73 sqM); Albumin 4.6 g/dL (3.5-5.0); Alkaline Phosphatase 52 U/L (38-126); Anion Gap 7 mmol/L; Blood Urea Nitrogen 16 mg/dL (9-20); Calcium 9.7 mg/dL (8.4-10.2); Carbon Dioxide 25 mmol/L (22-30); Chloride 103 mmol/L (98-107); Glucose 117 mg/dL (74-99); Magnesium 1.9 mg/dL (1.6-2.3); Non-African American GFR(CKD) >90 (>60 ml/min/1.73 sqM); Potassium 4.3 mmol/L (3.5-5.1); Sodium 135 mmol/L (137-145); Total Bilirubin 0.9 mg/dL (0.2-1.3); Total Protein 7.3 g/dL (6.3-8.2)
--- NOTE | 2020-08-10 13:07 | XR ---
EXAMINATION TYPE: XR chest 2V DATE OF EXAM: 08/10/2020 COMPARISON: 01/30/2018 HISTORY: 55-year-old male shortness of breath, dysrhythmia TECHNIQUE: PA and lateral views FINDINGS: The cardiomediastinal silhouette, aorta, and pulmonary vasculature are within normal limits. Lungs an d pleural spaces are clear. IMPRESSION: No acute cardiopulmonary process.
[2020-08-10 13:08] LABS: INR 0.9 (<1.2); Partial Thromboplastin Time 22.2 sec (22.0-30.0)
[2020-08-10] MEDS ORDERED: ASPIRIN 81 MG PO STA (15:37)
[2020-08-10] MEDS ORDERED: NITROGLYCERIN SL TABS 0.4 MG TAB SUBLINGUAL PRN (15:39)
--- NOTE | 2020-08-10 15:39 | ED ---
General Adult HPI - General Chief complaint: Arrhythmia/Palpitations Stated complaint: SOB/Chest flutter/shoulder pain Time Seen by Provider: 08/10/20 14:59 Source: patient Mode of arrival: ambulatory Limitations: no limitations - History of Present Illness Initial comments: Dictation was produced using [employer] dictation software. please excuse any grammatical, word or spelling errors. This patient was cared for during a federal and state declared state of emergency secondary to Covid 19 Chief Complaint: 55-year-old male past medical history of dyslipidemia, family history of cardiac disease presents with exertional dyspnea and chest pressure History of Present Illness: Is 55-year-old male who has past medical history of dyslipidemia and tobacco use. He states over the last week she's been having exertional dyspnea, and palpitations. He also has associated chest pressure. He states that it's like a pressure sensation to substernal chest. Today and the last couple days he's been having radiation to his bilateral shoulders. He does have family history of coronary artery disease. Patient has no established history of heart problems. He states his that had a CABG. Patient denies any symptoms at rest. Denies any symptoms of pleurisy. No history of blood clots The ROS documented in this emergency department record has been reviewed and confirmed by me. Those systems with pertinent positive or negative responses have been documented in the HPI. All other systems are other negative and/or noncontributory. PHYSICAL EXAM: General Impression: Alert and oriented x3, not in acute distress HEENT: Normocephalic atraumatic, extra-ocular movements intact, pupils equal and reactive to light bilaterally, mucous membranes moist. Cardiovascular: Heart regular rate and rhythm Chest: Able to complete full sentences, no retractions, no tachypnea Abdomen: abdomen soft, non-tender, non-distended, no organomegaly Musculoskeletal: Pulses present and equal in all extremities, no peripheral edema Motor: no focal deficits noted Neurological: CN II-XII grossly intact, no focal motor or sensory deficits noted Skin: Intact with no visualized rashes Psych: Normal affect and mood ED course: 55-year-old male with clinical presentation consistent with atypical chest pain with typical features. He does have multiple risk factors including family history and comorbidities, tobacco use. EKG does not show any signs of ST segment elevation IN or ischemia. States that his symptoms are improving with rest and that he does not have symptoms currently. vital signs upon arrival are within acceptable limits. EKG is benign and comparable to previous EKG from 01/31/2018. Disposition options were discussed. Patient wants to be admitted for cardiology evaluation, medical monitoring, serial troponins and possible stress testing. EKG interpretation: Ventricular rate 64, normal sinus rhythm, HI interval 166, QRS 90, QTC 410. No HI prolongation, no QTC prolongation, no ST or T-wave changes noted. Overall, this EKG is unremarkable - Related Data Home Medications Medication Instructions Recorded Confirmed Ascorbic Acid [Vitamin C] 500 mg PO DAILY 04/22/16 01/31/18 Aspirin EC [Ecotrin Low Dose] 81 mg PO DAILY 04/22/16 01/31/18 Atorvastatin [Lipitor] 10 mg PO HS 04/22/16 01/31/18 Ranitidine HCl [Zantac] 150 mg PO BID 01/31/18 01/31/18 Previous Rx's Medication Instructions Recorded Nicotine 21Mg/24Hr Patch [Habitrol] 1 patch TRANSDERM DAILY #30 patch 02/01/18 Allergies Allergy/AdvReac Type Severity Reaction Status Date / Time No Known Allergies Allergy Verified 08/10/20 12:29 Review of Systems ROS Statement: Those systems with pertinent positive or pertinent negative responses have been documented in the HPI. ROS Other: All systems not noted in ROS Statement are negative. Past Medical History Past Medical History: Hyperlipidemia History of Any Multi-Drug Resistant Organisms: None Reported Past Surgical History: Orthopedic Surgery Additional Past Surgical History / Comment(s): elbow Past Anesthesia/Blood Transfusion Reactions: No Reported Reaction Past Psychological History: Anxiety Smoking Status: Current every day smoker Past Alcohol Use History: Occasional Past Drug Use History: None Reported - Past Family History Mother Family Medical History: No Reported History Father Additional Family Medical History / Comment(s): Heart blockage and Parkinsons. Quadruple bypass surgery General Exam Limitations: no limitations Course Vital Signs 08/10/20 08/10/20 12:25 13:41 Temperature 98.6 F Pulse Rate 74 57 L Respiratory 18 18 Rate Blood Pressure 175/64 136/71 O2 Sat by Pulse 96 95 Oximetry Medical Decision Making - Lab Data Result diagrams: 08/10/20 12:34 08/10/20 12:34 Lab Results 03/29/21 03/29/21 03/29/21 Range/Units 12:34 12:34 12:34 WBC 9.0 (3.8-10.6) k/uL RBC 5.20 (4.30-5.90) m/uL Hgb 16.8 (13.0-17.5) gm/dL Hct 46.0 (39.0-53.0) % MCV 88.6 (80.0-100.0) fL MCH 32.3 (25.0-35.0) pg MCHC 36.5 (31.0-37.0) g/dL RDW 12.2 (11.5-15.5) % Plt Count 239 (150-450) k/uL MPV 7.0 Neutrophils % 68 % Lymphocytes % 24 % Monocytes % 5 % Eosinophils % 1 % Basophils % 1 % Neutrophils # 6.1 (1.3-7.7) k/uL Lymphocytes # 2.2 (1.0-4.8) k/uL Monocytes # 0.4 (0-1.0) k/uL Eosinophils # 0.1 (0-0.7) k/uL Basophils # 0.0 (0-0.2) k/uL PT 10.0 (9.0-12.0) sec INR 0.9 (<1.2) APTT 22.2 (22.0-30.0) sec Sodium 135 L (137-145) mmol/L Potassium 4.3 (3.5-5.1) mmol/L Chloride 103 (98-107) mmol/L Carbon Dioxide 25 (22-30) mmol/L Anion Gap 7 mmol/L BUN 16 (9-20) mg/dL Creatinine 0.86 (0.66-1.25) mg/dL Est GFR (CKD-EPI)AfAm >90 (>60 ml/min/1.73 sqM) Est GFR (CKD-EPI)NonAf >90 (>60 ml/min/1.73 sqM) Glucose 117 H (74-99) mg/dL Calcium 9.7 (8.4-10.2) mg/dL Magnesium 1.9 (1.6-2.3) mg/dL Total Bilirubin 0.9 (0.2-1.3) mg/dL AST 35 (17-59) U/L ALT 63 H (4-49) U/L Alkaline Phosphatase 52 (38-126) U/L Troponin I (0.000-0.034) ng/mL Total Protein 7.3 (6.3-8.2) g/dL Albumin 4.6 (3.5-5.0) g/dL Coronavirus (PCR) (Not Detectd) 08/10/20 08/10/20 Range/Units 12:34 13:40 WBC (3.8-10.6) k/uL RBC (4.30-5.90) m/uL Hgb (13.0-17.5) gm/dL Hct (39.0-53.0) % MCV (80.0-100.0) fL MCH (25.0-35.0) pg MCHC (31.0-37.0) g/dL RDW (11.5-15.5) % Plt Count (150-450) k/uL MPV Neutrophils % % Lymphocytes % % Monocytes % % Eosinophils % % Basophils % % Neutrophils # (1.3-7.7) k/uL Lymphocytes # (1.0-4.8) k/uL Monocytes # (0-1.0) k/uL Eosinophils # (0-0.7) k/uL Basophils # (0-0.2) k/uL PT (9.0-12.0) sec INR (<1.2) APTT (22.0-30.0) sec Sodium (137-145) mmol/L Potassium (3.5-5.1) mmol/L Chloride (98-107) mmol/L Carbon Dioxide (22-30) mmol/L Anion Gap mmol/L BUN (9-20) mg/dL Creatinine (0.66-1.25) mg/dL Est GFR (CKD-EPI)AfAm (>60 ml/min/1.73 sqM) Est GFR (CKD-EPI)NonAf (>60 ml/min/1.73 sqM) Glucose (74-99) mg/dL Calcium (8.4-10.2) mg/dL Magnesium (1.6-2.3) mg/dL Total Bilirubin (0.2-1.3) mg/dL AST (17-59) U/L ALT (4-49) U/L Alkaline Phosphatase (38-126) U/L Troponin I <0.012 (0.000-0.034) ng/mL Total Protein (6.3-8.2) g/dL Albumin (3.5-5.0) g/dL Coronavirus (PCR) Not Detected (Not Detectd) Disposition Clinical Impression: Chest pain Disposition: ADMITTED IP TO THIS HOSP Condition: Fair Referrals: None,Stated [Primary Care Provider] - 1-2 days Decision Time: 15:39
[2020-08-10] MEDS ORDERED: ALPRAZolam 0.25 MG TAB PO PRN (19:42)
[2020-08-10] MEDS ORDERED: ACETAMINOPHEN TAB 500 MG TAB PO PRN (19:42)
[2020-08-10] MEDS ORDERED: TEMAZEPAM 15 MG CAP PO PRN (19:42)
--- NOTE | 2020-08-10 21:10 | HP ---
HISTORY AND PHYSICAL DATE OF SERVICE: 08/10/2020 CHIEF COMPLAINTS: Shortness of breath and palpitations. HISTORY OF PRESENT ILLNESS: This 55-year-old gentleman with a past medical history of multiple medical problems, including hyperlipidemia, history of anxiety, being followed by no primary physician in the outpatient setting, was not feeling well over the past several days. The patient apparently had shortness of breath. The patient had some exertional dyspnea and exertional palpitations. Some chest pressure was also noted. The patient came to [facility] and was admitted for further evaluation and treatment. Today the patient is also complaining of pressure on the anterior part of the chest just below the shoulders. There is no history of any fever, rigor or chills. No history of headache, loss of consciousness, seizures at this time. The patient does have a family history of coronary artery disease. PAST MEDICAL HISTORY: History of hyperlipidemia, history of anxiety, history nicotine dependence. HOME MEDICATIONS: Vitamin B complex, omeprazole, Ecotrin, vitamin C. ALLERGIES: NONE. FAMILY HISTORY: History of heart blockage and Parkinson's. CABG in father. SOCIAL HISTORY: History of smoking. No history of alcohol intake. REVIEW OF SYSTEMS: ENT: No diminished hearing. No diminished vision. CARDIOVASCULAR SYSTEM: As mentioned earlier. RESPIRATORY SYSTEM: As mentioned earlier. GI: As mentioned earlier. : No dysuria or retention. NERVOUS SYSTEM: No numbness, weakness. ALLERGY/IMMUNOLOGY: No asthma, hayfever. MUSCULOSKELETAL: As mentioned earlier. HEMATOLOGY/ONCOLOGY: No history of anemia. ENDOCRINE: No history of diabetes, hypothyroidism. CONSTITUTIONAL: As mentioned earlier. DERMATOLOGY: Negative. RHEUMATOLOGY: Negative. PSYCHIATRY: As mentioned earlier. PHYSICAL EXAMINATION: Patient alert and oriented x3. Pulse 57, blood pressure 136/71, respiration 18, temperature 98.6, pulse ox 94% on room air. HEENT: Conjunctivae normal. Oral mucosa moist. NECK: No jugular venous distention. No carotid bruit. No lymph node enlargement. CARDIOVASCULAR SYSTEM: S1, S2 muffled. No S3. No S4. RESPIRATORY SYSTEM: Breath sounds diminished at the bases. No rhonchi. No crackles. ABDOMEN: Soft, non-tender. No mass palpable. LEGS: No edema. No swelling. NERVOUS SYSTEM: Higher functions as mentioned earlier. Moves all 4 limbs. No focal motor or sensory deficit. LYMPHATICS: No lymph node palpable in neck, axillae or groin. SKIN: No ulcer, rash, bleeding. JOINTS: No active deforming arthropathy. LABS: CBC within normal limits. D-dimer is normal. Sodium 135. COVID-19 negative. ASSESSMENT: 1. Chest pain, possible unstable angina. 2. Shortness of breath for evaluation. 3. Hyponatremia. 4. Increased random blood sugar. 5. Hypertension. 6. History of anxiety. 7. History of smoking. RECOMMENDATIONS AND DISCUSSION: In this 55-year-old gentleman who presented with multiple complex medical issues, we will monitor the patient closely, continue the current medications, continue with symptomatic treatment. N.p.o. after midnight. Cardiology consultation. Possible stress test in the morning. Otherwise, I would also recommend a 2D echo with Doppler as well as BNP. So far troponins are negative and EKG, which I reviewed personally, showed no evidence of any acute abnormality. Chest x-ray is also showing no acute abnormality. The patient has been recommended to follow up with a primary care physician in the outpatient setting. MMODL / IJN: [id number] /
[2020-08-10] MEDS: NICOTINE 14MG/24HR PATCH TRANSDERM SCH (22:53)
[2020-08-10] MEDS: PANTOPRAZOLE 40 MG/10 ML VIAL IVP SCH ×2 (22:53→23:00)
[2020-08-11 08:03] VITALS: BP 136/76; PULSE 54; TEMP 97.5
[2020-08-11] MEDS: NICOTINE 14MG/24HR PATCH TRANSDERM SCH (08:39)
[2020-08-11] MEDS: PANTOPRAZOLE 40 MG/10 ML VIAL IVP SCH (08:39)
[2020-08-11] MEDS ORDERED: ASCORBIC ACID 500 MG TAB PO SCH (09:00)
[2020-08-11] MEDS ORDERED: NON FORMULARY DRUG (Vitamin B Complex [Vitamin B Complex] 1 EACH Capsule) PO SCH (09:00)
[2020-08-11] MEDS ORDERED: ASPIRIN 325 MG TAB PO SCH (09:00)
[2020-08-11] MEDS ORDERED: ASPIRIN 81 MG PO SCH (09:00)
[2020-08-11 09:33] VITALS: RESP 18
[2020-08-11 09:38] LABS: Basophils # (A) 0.06 X 10*3/uL (0.00-0.10); Basophils % (A) 0.8 %; Eosinophils # (A) 0.31 X 10*3/uL (0.04-0.35); HCT 48.1 % (39.6-50.0); HGB 16.2 g/dL (13.0-17.0); Lymphocytes # (A) 2.41 X 10*3/uL (0.90-5.00); Lymphocytes % (A) 31.3 %; MCH 30.4 pg (27.0-32.0); MCHC 33.7 g/dL (32.0-37.0); MCV 90.2 fL (80.0-97.0); Mean Platelet Volume 10.1 fL (9.5-12.2); Monocytes # (A) 0.74 X 10*3/uL (0.20-1.00); Monocytes % (A) 9.6 %; Neutrophils # (A) 4.15 X 10*3/uL (1.80-7.70); Neutrophils % (A) 53.9 %; Platelet Count 238 X 10*3/uL (140-440); RBC 5.33 X 10*6/uL (4.40-5.60); RDW 12.6 % (11.5-14.5)
[2020-08-11 09:57] LABS: African American GFR (CKD) 98.5 (60.0-200.0); Anion Gap 5.9 mmol/L (4.00-12.00); Calcium 9.5 mg/dL (8.7-10.3); Carbon Dioxide 28.1 mmol/L (21.6-31.8); Chol/HDL Ratio 5.02; Non-African American GFR(CKD) 84.9 (60.0-200.0); Potassium 4.3 mmol/L (3.5-5.5)
[2020-08-11] MEDS ORDERED: ATORVASTATIN 20 MG TAB PO SCH (12:00)
--- NOTE | 2020-08-11 17:21 | CONS ---
CONSULTATION This is a 55-year-old gentleman who smokes about 1 to 1-1/2 pack daily, has history of hyperlipidemia, for which he takes, but very inconsistently, atorvastatin 10 mg, which he has stopped taking. About 3 years ago he had a cardiac catheterization which revealed no significant obstructive CAD. He has no hypertension. He generally does well overall with physical activity, has no symptoms. For about a week or so he has been experiencing what he describes as fleeting pains which start in his right shoulder, then go to the left shoulder and then come right back to the right shoulder. It happens about 3 to 4 times a day in a random fashion without obvious precipitating factors. He then experiences a sharp pain in the right lateral aspect of his chest as well. With these symptoms he felt concerned and came into the hospital. Quality of pain is atypical. He is asymptomatic, resting comfortably. Troponins are normal. EKG is unremarkable. He is asymptomatic at the time of my evaluation. PAST MEDICAL HISTORY: Unremarkable cardiac cath in 2017 without any obstructive CAD and normal LV function by echo. He has no hypertension, diabetes, myocardial infarction or CVA. He smokes and was advised Lipitor, but he has not taken it on a regular basis. PHYSICAL EXAMINATION: On examination, blood pressure is 136/70, pulse rate is 70 per minute, regular. HEENT unremarkable. Fundus was not examined by me. Neck is supple. There is no JVD. I do not hear a carotid bruit. Heart exam reveals S1, S2 heard normally. No rub, murmur or gallop. Lungs are clear. Abdomen is soft, nontender. Lower extremities reveal normal pulses. No edema. Central nervous system is normal. EKG revealed sinus mechanism; no acute changes. LABORATORY DATA: Revealed unremarkable troponins. IMPRESSION: 1. Atypical chest pain. 2. History of smoking. 3. Hyperlipidemia with LDL cholesterol that was checked today and came to be 131. 4. Past history of cardiac cath within the last 3 years with unremarkable angiograms. RECOMMENDATIONS: I am recommending smoking cessation. Will initiate him on atorvastatin 20 mg daily and because of a borderline blood pressure and there were some readings that were higher, I will suggest amlodipine at 5 mg at bedtime. He has been counseled to quit smoking, and nicotine patch was advised. He can be discharged today and I will see him in the office in one week and will make further recommendations based on his progress. I will initiate him on Lipitor 20 mg daily and he should be discharged on the same dose. MMODL / IRVINN: [id number] /
[2020-08-11] MEDS ORDERED: amLODIPine 5 MG TAB PO SCH (21:00)
--- NOTE | 2020-08-12 05:58 | DS ---
DISCHARGE SUMMARY DATE OF SERVICE: 08/11/2020 FINAL DIAGNOSIS: 1. Chest pain, myocardial infarction ruled out. 2. Shortness of breath for evaluation. 3. Hyponatremia. 4. Increased random blood sugar. 5. Hypertension. 6. History of anxiety. 7. History of smoking. DISCHARGE DISPOSITION: The patient will be discharged in a stable condition with a guarded prognosis. HISTORY OF PRESENT ILLNESS: This 55-year-old gentleman with a past medical history of multiple medical problems was admitted with shortness of breath and palpitation and chest pain. The patient was monitored closely. Myocardial infarction ruled out. Cardiology recommended outpatient workup. Please refer to Cardiology notes for further information. PHYSICAL EXAMINATION: On exam, vitals are stable. Cardiovascular normal. Abdomen soft, nontender. Nervous system: No focal deficits. LABORATORY DATA: D-dimer negative. Cholesterol is 211. Lipitor was initiated. DISCHARGE INSTRUCTIONS: Discharge diet is cardiac. Activity is limited until followup. Follow up with Dr. Ferreira in 1 week. Follow up with Dr. Henry Cotto as recommended. MEDICATIONS: 1. Ecotrin 81 mg daily. 2. Omeprazole 20 mg daily. 3. Vitamin B complex 1 p.o. daily. 4. Vitamin C 500 mg daily. 5. Habitrol 14 daily. 6. Lipitor 10 mg daily. 7. Norvasc 5 mg q.h.s. Once again the patient will be discharged in stable condition with guarded prognosis. Outpatient stress test per Cardiology. MMODL / IJN: [id number] /
== END 2020-08-11 12:14 ==
LOC: EC 12:12 → 6NMEDSUR 15:39
PROVIDERS: ADMIT Hospitalist; ATTEND Hospitalist
DX: R07.89 Other chest pain (principal); R00.2 Palpitations; R06.02 Shortness of breath; R06.09 Other forms of dyspnea; I10 Essential (primary) hypertension; E78.5 Hyperlipidemia, unspecified; E87.1 Hypo-osmolality and hyponatremia; F41.9 Anxiety disorder, unspecified; F17.210 Nicotine dependence, cigarettes, uncomplicated; Z20.822 Contact with and (suspected) exposure to COVID-19; Z79.82 Long term (current) use of aspirin; Z79.899 Other long term (current) drug therapy; Z82.49 Family history of ischemic heart disease and other diseases of the circulatory system; Z82.0 Family history of epilepsy and other diseases of the nervous system
CPT/HCPCS: 96376; 96374; 93005 ×2; 99285; 36415; 85379; 80061; 80053; 80048; 83735; 84484; 85025 ×2; 85610; 85730; 87635; 71046; G0378 ×2; S4990 ×2; C9113 ×2

== ENCOUNTER → 2020-08-13 | Outpatient (CLI) | payer OTHER ==
[2020-08-13 19:42] LABS: Basophils # (A) 0.08 X 10*3/uL (0.00-0.10); Eosinophils # (A) 0.26 X 10*3/uL (0.04-0.35); Eosinophils % (A) 3.1 %; HCT 51.8 % (39.6-50.0); HGB 17.5 g/dL (13.0-17.0); Lymphocytes # (A) 2.85 X 10*3/uL (0.90-5.00); Lymphocytes % (A) 34.3 %; MCH 30.6 pg (27.0-32.0); MCHC 33.8 g/dL (32.0-37.0); MCV 90.7 fL (80.0-97.0); Mean Platelet Volume 10.4 fL (9.5-12.2); Monocytes # (A) 0.61 X 10*3/uL (0.20-1.00); Monocytes % (A) 7.3 %; Neutrophils # (A) 4.48 X 10*3/uL (1.80-7.70); Neutrophils % (A) 54.1 %; Platelet Count 266 X 10*3/uL (140-440); RBC 5.71 X 10*6/uL (4.40-5.60); RDW 12.4 % (11.5-14.5)
[2020-08-14 08:46] LABS: African American GFR (CKD) 98.5 (60.0-200.0); Albumin 4.7 g/dL (3.80-4.90); Albumin/Globulin Ratio 2.14 (1.60-3.17); Anion Gap 9.5 mmol/L (4.00-12.00); Calcium 10.1 mg/dL (8.7-10.3); Carbon Dioxide 24.5 mmol/L (21.6-31.8); Globulin 2.2 g/dL (1.6-3.3); Non-African American GFR(CKD) 84.9 (60.0-200.0); Potassium 4.4 mmol/L (3.5-5.5); Total Protein 6.9 g/dL (6.2-8.2)
[2020-08-14 16:25] LABS: Total Bilirubin 1.3 mg/dL (0.3-1.2)
== END | disposition home or self-care (01) ==
LOC: LABWHC1 13:53
PROVIDERS: ATTEND Hospitalist
DX: E78.5 Hyperlipidemia, unspecified (principal)
CPT/HCPCS: 36415; 80053; 85025

== ENCOUNTER 2021-09-07 08:06 | Day surgery (SDC) | payer OTHER ==
[2021-09-07] MEDS ORDERED: LIDOCAINE 1% (10MG/ML) FOR IV START INTRADERMA PRN (08:16)
[2021-09-07] MEDS ORDERED: LACTATED RINGERS 1,000 ML IV SCH (08:16)
[2021-09-07] MEDS ORDERED: LACTATED RINGERS 1,000 ML IV ONE (08:24)
[2021-09-07 08:25] VITALS: TEMP 98
[2021-09-07] MEDS ORDERED: PROPOFOL 10 MG/ML 20 ML VIAL IV ONE (09:18)
--- NOTE | 2021-09-07 09:40 | P.PCN ---
Date of Procedure: 09/07/21 Procedure(s) Performed: BRIEF HISTORY: Patient is a 56-year-old pleasant white male scheduled for an elective colonoscopy as a part of evaluation of prior history of colon polyps. His been complaining of intermittent rectal pain. PROCEDURE PERFORMED: Colonoscopy with snare polypectomy. PREOPERATIVE DIAGNOSIS: History of colon polyps and intermittent rectal bleeding. IV sedation per Anesthesia. PROCEDURE: After informed consent was obtained, the patient, was brought into the endoscopy unit. IV sedation was administered by Anesthesia under continuous monitoring. Digital rectal examination was normal. Initially the Olympus CF-160 flexible video colonoscope was then inserted in the rectum, gradually advanced into the cecum without any difficulty. Careful examination was performed as the scope was gradually being withdrawn. Ileocecal valve and the appendiceal orifice were visualized and appeared normal. Prep was excellent. Mucosa of the cecum, we normal. In the ascending colon there was a 1 cm and 1.5 cm broad-based polyps removed by snare polypectomy. Rest of the ascending colon, transverse colon, descending colon, we normal. In the sigmoid colon there was a 5 mm and 7 mm polyp removed by snare polypectomy. Rest of the sigmoid colon, and rectum appeared normal. Retroflexion was performed in the rectum and no lesions were seen. The patient tolerated the procedure well. IMPRESSION: 1 cm and 1.5 cm ascending colon polyp status post polypectomy 5 mm and 7 mm sigmoid colon polyp status post polypectomy RECOMMENDATIONS: Findings of this examination were discussed with the patient as well as her family. He was advised to follow with the biopsy results. If the biopsy reveals adenoma he can have a repeat colonoscopy in 3 years..
[2021-09-07 09:44] VITALS: RESP 16
[2021-09-07 09:58] VITALS: BP 131/76; PULSE 63
== END 2021-09-07 10:19 | disposition home or self-care (01) ==
LOC: ORWHC2ENDO 08:06
PROVIDERS: ATTEND Internal Medicine Gastroenterology
DX: D12.2 Benign neoplasm of ascending colon (principal); Z86.010 Personal history of colon polyps
CPT/HCPCS: 45385; 88305; J2704

== ENCOUNTER 2023-02-22 11:43 | Observation (INO) | payer OTHER ==
[2023-02-22] MEDS ORDERED: SODIUM CHLORIDE 0.9% 1,000 ML IV ONE (12:13)
[2023-02-22 12:41] LABS: Basophils # (A) 0.1 k/uL (0-0.2); Basophils % (A) 1 %; Eosinophils # (A) 0.1 k/uL (0-0.7); Eosinophils % (A) 1 %; HCT 51.3 % (39.0-53.0); HGB 17.7 gm/dL (13.0-17.5); Lymphocytes # (A) 1.8 k/uL (1.0-4.8); Lymphocytes % (A) 17 %; MCH 31.3 pg (25.0-35.0); MCHC 34.5 g/dL (31.0-37.0); MCV 90.5 fL (80.0-100.0); Mean Platelet Volume 7.4; Monocytes # (A) 0.4 k/uL (0-1.0); Monocytes % (A) 4 %; Neutrophils # (A) 7.9 k/uL (1.3-7.7); Neutrophils % (A) 76 %; Platelet Count 245 k/uL (150-450); RBC 5.66 m/uL (4.30-5.90); RDW 12.7 % (11.5-15.5); WBC 10.3 k/uL (3.8-10.6)
--- NOTE | 2023-02-22 12:48 | XR ---
EXAMINATION TYPE: XR chest 2V DATE OF EXAM: 02/22/2023 COMPARISON: 08/10/2020 TECHNIQUE: PA and lateral views submitted. HISTORY: Weakness FINDINGS: The lungs are clear and there is no pneumothorax, pleural effusion, or focal pneumonia. Heart size normal and no overt failure. Osseous structures demonstrate hypertrophic and degenerative changes of the spine. Hyperinflation suggests COPD. Hypertrophic AC joint arthropathy. IMPRESSION: 1. No acute process.
[2023-02-22 12:51] LABS: INR 0.9 (<1.2); Partial Thromboplastin Time 23.1 sec (22.0-30.0)
[2023-02-22 12:53] LABS: ALT 34 U/L (4-49); AST 27 U/L (17-59); African American GFR (CKD) >90 (>60 ml/min/1.73 sqM); Albumin 4.4 g/dL (3.5-5.0); Alkaline Phosphatase 50 U/L (38-126); Anion Gap 9 mmol/L; Blood Urea Nitrogen 16 mg/dL (9-20); Calcium 9.8 mg/dL (8.4-10.2); Carbon Dioxide 22 mmol/L (22-30); Chloride 105 mmol/L (98-107); Glucose 121 mg/dL (74-99); Magnesium 1.9 mg/dL (1.6-2.3); Non-African American GFR(CKD) >90 (>60 ml/min/1.73 sqM); Potassium 4.3 mmol/L (3.5-5.1); Sodium 136 mmol/L (137-145); Total Bilirubin 1.2 mg/dL (0.2-1.3); Total Protein 7.3 g/dL (6.3-8.2)
[2023-02-22] MEDS ORDERED: ASPIRIN 81 MG PO STA (12:59)
[2023-02-22] MEDS ORDERED: MAG HYDROX/AL HYDROX/SIMETH 30 ML, HYOSCYAMINE ELIXIR 10 ML, LIDOCAINE 2% GLYDO JELLY 1... PO STA ×3 (12:59)
[2023-02-22] MEDS ORDERED: NITROGLYCERIN SL TABS 0.4 MG TAB SUBLINGUAL STA (13:09)
--- NOTE | 2023-02-22 13:59 | ED ---
General Adult HPI - General Chief complaint: Chest Pain Stated complaint: Chest Pain,SOB Time Seen by Provider: 02/22/23 11:57 Source: patient, RN notes reviewed Mode of arrival: EMS Limitations: no limitations - History of Present Illness Initial comments: 57-year-old male with no significant past medical history presents to the emergency department the chief complaint of chest pain. Patient reports the episode of dizziness, lightheadedness, shortness of breath and diaphoresis, and shakiness that lasted approximately 30 minutes. This episode prompted him to call EMS. He is also complaining of left-sided chest tightness. Patient is a tobacco product smoker. Denies history of hypertension, diabetes. He reports that he still actively chest tightness however it has improved since being here. Patient was any fever, headache, cough, , abdominal pain, nausea, vomiting, melena, hematochezia. - Related Data Home Medications Medication Instructions Recorded Confirmed Omeprazole Magnesium [PriLOSEC OTC] 20 mg PO DAILY 08/10/20 02/22/23 Loratadine [Claritin] 10 mg PO DAILY 02/22/23 02/22/23 Multivitamins, Thera [Multivitamin 1 tab PO DAILY 02/22/23 02/22/23 (formulary)] Allergies Allergy/AdvReac Type Severity Reaction Status Date / Time No Known Allergies Allergy Verified 02/22/23 12:49 Review of Systems ROS Statement: Those systems with pertinent positive or pertinent negative responses have been documented in the HPI. ROS Other: All systems not noted in ROS Statement are negative. Past Medical History Past Medical History: Hyperlipidemia History of Any Multi-Drug Resistant Organisms: None Reported Past Surgical History: Orthopedic Surgery Additional Past Surgical History / Comment(s): elbow Past Anesthesia/Blood Transfusion Reactions: No Reported Reaction Past Psychological History: Anxiety Smoking Status: Current every day smoker Past Alcohol Use History: Occasional Past Drug Use History: None Reported - Past Family History Mother Family Medical History: No Reported History Father Additional Family Medical History / Comment(s): Heart blockage and Parkinsons. Quadruple bypass surgery General Exam - General Exam Comments Initial Comments: General: Alert, in no acute distress Head: atraumatic normocephalic. Eyes PERRL, EOMI intact, mucous membranes moist Respiratory: Lungs clear to auscultation bilaterally Cardiovascular: Heart rate regular rate and rhythm Abdominal: Soft without guarding or rebound Extremities: Normal inspection with full range of motion and normal capillary refill Neuroogic: alert and oriented 3, CN II-XII intact, able to ambulate with steady gait Skin: warm dry and intact with normal color Limitations: no limitations Course Vital Signs 02/22/23 12:26 Temperature 98.3 F Pulse Rate 60 Respiratory 18 Rate Blood Pressure 152/80 O2 Sat by Pulse 96 Oximetry - Reevaluation(s) Reevaluation #1: 02/22/23 14:15 Reevaluated. Patient reports that symptom improvement status post nitro admi nistration. Reevaluation #2: 02/22/23 15:[address] Garcia, who agrees and accepts the patient with consult to cardiology EKG Findings - EKG Comments: EKG Findings:: Interpreted the following: EKG performed at 12:05 rate 58 beats minute and sinus bradycardia LA interval 136, QRS duration 103, QT/QTc 403/399 Medical Decision Making - Medical Decision Making Was pt. sent in by a medical professional or institution (, PA, PHYTOCHEMISTRY PROFESSOR, urgent care, hospital, or snf...) When possible be specific @ -[No] Did you speak to anyone other than the patient for history (EMS, parent, family, police, friend...)? What history was obtained from this source @ -EMS Did you review nursing and triage notes (agree or disagree)? Why? @ -[I reviewed and agree with nursing and triage notes] Were old charts reviewed (outside hosp., previous admission, EMS record, old EKG, old radiological studies, urgent care reports/EKG's, snf records)? Report findings @ -[No old charts were reviewed] Differential Diagnosis (chest pain, altered mental status, abdominal pain women, abdominal pain men, vaginal bleeding, weakness, fever, dyspnea, syncope, headache, dizziness, GI bleed, back pain, seizure, CVA, palpatations, mental health, musculoskeletal)? @ -[not applicable] EKG interpreted by me (3pts min.). @ -[As above] X-rays interpreted by me (1pt min.). @ -Negative for any intracranial process CT interpreted by me (1pt min.). @ -[None done] U/S interpreted by me (1pt. min.). @ -[None done] What testing was considered but not performed or refused? (CT, X-rays, U/S, labs)? Why? @ -[None] What meds were considered but not given or refused? Why? @ -[None] Did you discuss the management of the patient with other professionals (professionals i.e. , PA, PHYTOCHEMISTRY PROFESSOR, lab, RT, psych nurse, social worker health services, set up technician, teacher, associate loan officer, case reviewer)? Give summary @ -Dr. Garcia who agrees and accepts the patient for admission Was smoking cessation discussed for >3mins.? @ -Yes Was critical care preformed (if so, how long)? @ -[No] Were there social determinants of health that impacted care today? How? (Homelessness, low income, unemployed, alcoholism, drug addiction, transportation, low edu. Level, literacy, decrease access to med. care, shelter, rehab)? @ -[No] Was there de-escalation of care discussed even if they declined (Discuss DNR or withdrawal of care, Hospice)? DNR status @ -[No] What co-morbidities impacted this encounter? (DM, HTN, Smoking, COPD, CAD, Cancer, CVA, ARF, Chemo, Hep., AIDS, mental health diagnosis, sleep apnea, morbid obesity)? @ -[None] Was patient admitted / discharged? Hospital course, mention meds given and route, prescriptions, significant lab abnormalities, going to OR and other pertinent info. @ -Admission. This is a 57-year-old male who presents the emergency department with chief complaint of chest pain. Patient had thorough history and physical exam performed while in the ED. Heart rate regular rate and rhythm, auscultation bilaterally abdomen soft nontender chest pain is not reproducible or worse with arm movement. He is experiencing at rest. Patient laboratory studies which revealed WBC 10.3, hemoglobin 17.7 coordination studies negative including negative d-dimer sodium 136, potassium 4.3 BUN 16, creatinine 0.65 glucose 120 initial troponin negative. EKG without any evidence of ST elevation or depression. Due to the patient's age and resolution of symptoms status post receiving sublingual nitroglycerin and it is my decision to admit the patient. Case discussed with Dr. Garcia agrees and accepts the patient for admission with recommend consult to cardiology. Case discussed with Dr. Bayudan, ECP who agrees with POC Undiagnosed new problem with uncertain prognosis? @ -[No] Drug Therapy requiring intensive monitoring for toxicity (Heparin, Nitro, Insulin, Cardizem)? @ -[No] Were any procedures done? @ -[No] Diagnosis/symptom? @ -Chest Pain - Unstable Angina Acute, or Chronic, or Acute on Chronic? @ -Acute Uncomplicated (without systemic symptoms) or Complicated (systemic symptoms)? @ -Uncomplicated Side effects of treatment? @ -[No] Exacerbation, Progression, or Severe Exacerbation? @ -[No] Poses a threat to life or bodily function? How? (Chest pain, [place], [place], pneumonia, PE, COPD, DKA, ARF, appy, cholecystitis, CVA, Diverticulitis, Homicidal, Suicidal, threat to staff... and all critical care pts) @ -Moderate likelihood. Due to patient's chief complaint of chest pain patient's has a Moderate HEART score - Lab Data Result diagrams: 02/22/23 12:32 02/22/23 12:32 Lab Results 02/22/23 02/22/23 02/22/23 Range/Units 12:32 12:32 12:32 WBC 10.3 (3.8-10.6) k/uL RBC 5.66 (4.30-5.90) m/uL Hgb 17.7 H (13.0-17.5) gm/dL Hct 51.3 (39.0-53.0) % MCV 90.5 (80.0-100.0) fL MCH 31.3 (25.0-35.0) pg MCHC 34.5 (31.0-37.0) g/dL RDW 12.7 (11.5-15.5) % Plt Count 245 (150-450) k/uL MPV 7.4 Neutrophils % 76 % Lymphocytes % 17 % Monocytes % 4 % Eosinophils % 1 % Basophils % 1 % Neutrophils # 7.9 H (1.3-7.7) k/uL Lymphocytes # 1.8 (1.0-4.8) k/uL Monocytes # 0.4 (0-1.0) k/uL Eosinophils # 0.1 (0-0.7) k/uL Basophils # 0.1 (0-0.2) k/uL PT 10.0 (9.0-12.0) sec INR 0.9 (<1.2) APTT 23.1 (22.0-30.0) sec D-Dimer (<0.60) mg/L FEU Sodium 136 L (137-145) mmol/L Potassium 4.3 (3.5-5.1) mmol/L Chloride 105 (98-107) mmol/L Carbon Dioxide 22 (22-30) mmol/L Anion Gap 9 mmol/L BUN 16 (9-20) mg/dL Creatinine 0.65 L (0.66-1.25) mg/dL Est GFR (CKD-EPI)AfAm >90 (>60 ml/min/1.73 sqM) Est GFR (CKD-EPI)NonAf >90 (>60 ml/min/1.73 sqM) Glucose 121 H (74-99) mg/dL Calcium 9.8 (8.4-10.2) mg/dL Magnesium 1.9 (1.6-2.3) mg/dL Total Bilirubin 1.2 (0.2-1.3) mg/dL AST 27 (17-59) U/L ALT 34 (4-49) U/L Alkaline Phosphatase 50 (38-126) U/L Troponin I (0.000-0.034) ng/mL Total Protein 7.3 (6.3-8.2) g/dL Albumin 4.4 (3.5-5.0) g/dL 02/22/23 02/22/23 02/22/23 Range/Units 12:32 13:44 13:44 WBC (3.8-10.6) k/uL RBC (4.30-5.90) m/uL Hgb (13.0-17.5) gm/dL Hct (39.0-53.0) % MCV (80.0-100.0) fL MCH (25.0-35.0) pg MCHC (31.0-37.0) g/dL RDW (11.5-15.5) % Plt Count (150-450) k/uL MPV Neutrophils % % Lymphocytes % % Monocytes % % Eosinophils % % Basophils % % Neutrophils # (1.3-7.7) k/uL Lymphocytes # (1.0-4.8) k/uL Monocytes # (0-1.0) k/uL Eosinophils # (0-0.7) k/uL Basophils # (0-0.2) k/uL PT (9.0-12.0) sec INR (<1.2) APTT (22.0-30.0) sec D-Dimer 0.37 (<0.60) mg/L FEU Sodium (137-145) mmol/L Potassium (3.5-5.1) mmol/L Chloride (98-107) mmol/L Carbon Dioxide (22-30) mmol/L Anion Gap mmol/L BUN (9-20) mg/dL Creatinine (0.66-1.25) mg/dL Est GFR (CKD-EPI)AfAm (>60 ml/min/1.73 sqM) Est GFR (CKD-EPI)NonAf (>60 ml/min/1.73 sqM) Glucose (74-99) mg/dL Calcium (8.4-10.2) mg/dL Magnesium (1.6-2.3) mg/dL Total Bilirubin (0.2-1.3) mg/dL AST (17-59) U/L ALT (4-49) U/L Alkaline Phosphatase (38-126) U/L Troponin I <0.012 <0.012 (0.000-0.034) ng/mL Total Protein (6.3-8.2) g/dL Albumin (3.5-5.0) g/dL Disposition Clinical Impression: Chest pain, Unstable angina Disposition: ADMITTED IP TO THIS [facility] Is patient prescribed a controlled substance at d/c from ED?: No Time of Disposition: 15:16
[2023-02-22] MEDS ORDERED: NALOXONE 0.4 MG/ML 1 ML VIAL IV PRN (15:16)
[2023-02-22] MEDS: SODIUM CHLORIDE 0.9% 1,000 ML IV SCH (16:21)
[2023-02-22] MEDS ORDERED: MELATONIN 3 MG TABLET PO PRN (17:00)
[2023-02-22] MEDS ORDERED: ALPRAZolam 0.25 MG TAB PO PRN (17:00)
[2023-02-22] MEDS ORDERED: CALCIUM CARBONATE 500 MG CHEWABLE PO PRN (17:00)
[2023-02-22] MEDS ORDERED: ACETAMINOPHEN TAB 325 MG TAB PO PRN (17:00)
[2023-02-22] MEDS ORDERED: LACTULOSE 20 GM/30 ML CUP PO PRN (17:00)
[2023-02-22] MEDS ORDERED: ONDANSETRON 4 MG/2 ML VIAL IVP PRN (17:00)
[2023-02-22] MEDS: NICOTINE 21MG/24HR PATCH TRANSDERM SCH (17:19)
--- NOTE | 2023-02-22 17:49 | CT ---
EXAMINATION TYPE: CT angio chest CT DLP: 447.1 mGycm, Automated exposure control for dose reduction was used. DATE OF EXAM: 02/22/2023 5:25 PM COMPARISON: 02/22/2023 radiographs. CLINICAL INDICATION:Male, 57 years old with history of poss PE; chest pain TECHNIQUE/CONTRAST: CTA scan of the thorax is performed with IV Contrast, patient injected with 100 mL of Isovue 370, MIP images are created and reviewed these are created on a separate workstation.. FINDINGS: Pulmonary Artery: There is no evidence for a filling defect within the pulmonary vasculature to sugge st acute pulmonary embolism. The pulmonary artery is of normal size. Lungs/Pleura: Left lower lobe superior segment 9 mm pulmonary nodule. No evidence of focal consolidat ion, pleural effusion or pneumothorax. Airway: Large airways are patent. Heart: Heart is within normal limits for size. Vasculature: No evidence of aortic aneurysm. Mediastinum: No gross evidence of adenopathy. Musculoskeletal: Mild degenerative disc disease changes are present throughout the thoracolumbar spin e. Soft Tissues: Unremarkable. Lower neck: No significant findings. Upper Abdomen: Diffuse low-attenuation to the liver parenchyma. Gallstones in the gallbladder lumen. IMPRESSION: 1. No evidence of pulmonary embolism. 2. Left lower lobe superior segment 9 mm pulmonary nodule. PET/CTs recommended. 3. Hepatic steatosis. 4. Cholelithiasis.
--- NOTE | 2023-02-22 18:37 | P.HPIM ---
History of Present Illness H&P Date: 02/22/23 Chief Complaint: Difficulty breathing This is a pleasant 57-year-old patient follows with Dr. Astorga. Patient went hunting this morning. Temperature was around 40. Was up a tree for a few hours. Then he decided to come down and go home. Office for started getting dizzy. When he got home he felt as if his finding it difficult to take a breath. Some heaviness of the chest. Decided to go to the garage and sent down. Started shaking. Became clammy. Patient has been feeling slightly off for the whole week. Also had some cramping in the legs today. Decided to come in. Over a year ago patient did have a negative stress test. Otherwise no cardiac symptoms. Patient does have slight cough. Is a smoker. 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 Physical examination: VITAL SIGNS: 98.2, 88, 18, 126/82, 98% room air GENERAL: BMI 26.4, sitting up awake but in distress. EYES: Pupils equal. Conjunctiva normal. HEENT: External appearance of nose and ears normal, oral cavity grossly normal. NECK: JVD not raised; masses not palpable. HEART: First and second heart sounds are normal; no edema. LUNGS:[ Respiratory rate normal; decreased breath sounds. ABDOMEN: Soft, nontender, liver spleen not palpable, no masses palpable. PSYCH: Alert and oriented x3; mood and affect normal. MUSCULOSKELETAL:No Clubbing/cyanosis;muscles-grossly intact NEUROLOGICAL: Cranial nerves grossly intact; no facial asymmetry, power and sensation grossly intact. LYMPHATICS: No lymph nodes palpable in the axilla and neck INVESTIGATIONS, reviewed in the clinical context: White count 10.3 hemoglobin 7.7 platelets 245 sodium 136 potassium 4.3 BUN 16 creatinine 0.65 Troponin I less than 0.0123 D-dimer 0.37 CT angiogram chest: Negative PE. Left lower lobe superior segment 9 mm pulmonary nodule. Hepatic steatosis. Gallstones. EKG tracing personally reviewed by me-normal sinus rhythm Chest x-ray film personally reviewed by me-hyperinflation Assessment plan: -Anterior chest wall pressure with clamminess. Possible unstable angina Negative troponin. EKG unremarkable. Cardiac risk factors include smoking. Telemetry. Cardiology consult. Keep nothing by mouth after midnight for possible stress test. -Gallstones, asymptomatic -Hepatic steatosis -COPD in a current smoker Albuterol when necessary -Chronic nicotine dependence cigarette smoke or Nicotine patch -Left lung nodule. Follow-up with Dr. Conley outpatient. Care was discussed with the patient and . Questions answered. Past Medical History Past Medical History: Hyperlipidemia History of Any Multi-Drug Resistant Organisms: None Reported Past Surgical History: Orthopedic Surgery Additional Past Surgical History / Comment(s): elbow Past Anesthesia/Blood Transfusion Reactions: No Reported Reaction Past Psychological History: Anxiety Smoking Status: Current every day smoker Past Alcohol Use History: Occasional Past Drug Use History: None Reported - Past Family History Mother Family Medical History: No Reported History Father Additional Family Medical History / Comment(s): Heart blockage and Parkinsons. Quadruple bypass surgery Medications and Allergies Home Medications Medication Instructions Recorded Confirmed Type Omeprazole Magnesium [PriLOSEC OTC] 20 mg PO DAILY 08/10/20 02/22/23 History Loratadine [Claritin] 10 mg PO DAILY 02/22/23 02/22/23 History Multivitamins, Thera [Multivitamin 1 tab PO DAILY 02/22/23 02/22/23 History (formulary)] Allergies Allergy/AdvReac Type Severity Reaction Status Date / Time No Known Allergies Allergy Verified 02/22/23 12:49 Physical Exam Vitals: Vital Signs Temp Pulse Resp BP Pulse Ox 02/22/23 17:54 98.2 F 88 18 126/82 98 02/22/23 12:26 98.3 F 60 18 152/80 96 Intake and Output 02/22/23 02/22/23 02/22/23 06:59 14:59 22:59 Other: Weight 90.718 kg Results CBC & Chem 7: 02/22/23 12:32 02/22/23 12:32 Labs: Abnormal Lab Results - Last 24 Hours (Table) 02/22/23 02/22/23 Range/Units 12:32 12:32 Hgb 17.7 H (13.0-17.5) gm/dL Neutrophils # 7.9 H (1.3-7.7) k/uL Sodium 136 L (137-145) mmol/L Creatinine 0.65 L (0.66-1.25) mg/dL Glucose 121 H (74-99) mg/dL
[2023-02-22] MEDS: ENOXAPARIN 40 MG/0.4 ML SYRINGE SQ SCH (19:50)
[2023-02-22] MEDS ORDERED: PANTOPRAZOLE 40 MG TABLET PO STA (20:36)
[2023-02-23] MEDS ORDERED: SODIUM CHLORIDE 0.9% 1,000 ML IV SCH (08:30)
[2023-02-23 08:56] VITALS: RESP 16
[2023-02-23 09:04] LABS: Basophils # (A) 0.07 X 10*3/uL (0.00-0.10); Basophils % (A) 0.9 %; Eosinophils # (A) 0.27 X 10*3/uL (0.04-0.35); Eosinophils % (A) 3.3 %; HCT 49.6 % (39.6-50.0); Lymphocytes # (A) 3.14 X 10*3/uL (0.90-5.00); Lymphocytes % (A) 38.2 %; MCH 30.6 pg (27.0-32.0); MCHC 34.3 d/dL (32.0-37.0); MCV 89.4 FL (80.0-97.0); Mean Platelet Volume 9.5 FL (9.5-12.2); Monocytes # (A) 0.77 X 10*3/uL (0.20-1.00); Monocytes % (A) 9.4 %; NRBC Per 100 WBC 0 X 10*3/uL (0.00-0.01); Neutrophils # (A) 3.95 X 10*3/uL (1.80-7.70); Platelet Count 252 X 10*3/uL (140-440); RBC 5.55 X 10*6/uL (4.40-5.60); RDW 12.9 % (11.5-14.5); WBC 8.22 X 10*3/uL (4.50-10.00)
[2023-02-23 09:10] LABS: BUN/Creat Ratio 11.78 Ratio (12.00-20.00); Blood Urea Nitrogen 10.6 mg/dL (9.0-27.0); Calcium 9.8 mg/dL (8.7-10.3); Carbon Dioxide 26.7 mmol/L (21.6-31.8); Chloride 104 mmol/L (96-109); Chol/HDL Ratio 5.11 Ratio; Glucose 105 mg/dL (70-110); LDL Cholesterol,Calculated 132.3 mg/dL (0.0-131.0); Potassium 4.5 mmol/L (3.5-5.5); Sodium 140 mmol/L (135-145)
[2023-02-23] MEDS: ENOXAPARIN 40 MG/0.4 ML SYRINGE SQ SCH (09:14)
[2023-02-23] MEDS: NICOTINE 21MG/24HR PATCH TRANSDERM SCH (09:14)
[2023-02-23] MEDS: SODIUM CHLORIDE 0.9% 1,000 ML IV SCH (11:07)
--- NOTE | 2023-02-23 11:22 | P.CRDCN ---
History of Present Illness History of present illness: HISTORY OF PRESENT ILLNESS: This is a 57-year-old male with a past medical history significant for nicotine dependence and occasional alcohol use. 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 We have been asked to see the patient in consultation for chest pain. Patient examined at the bedside. Patients is present. Patient states yesterday he was out hunting. He states he was driving home and as he was getting out of the truck he began to feel dizzy. He states he walked to his pole barn and sat down. He reports his whole body started shaking and he co uldn't catch his breath. He states that felt like everything was closing in around him and he was going to pass out. He denies having a syncopal episode. The patient does report having palpitations over the past week. The patient states he drinks 1-2 times per week and drinks 6-12 beers on each occasion. * EKG reveals sinus bradycardia with no signs of acute ischemia * Chest xray negative for an acute process * Laboratory data: WBC 8.22. Hemoglobin 17.0. Platelet count 252. D-dimer 0.37. Sodium 140. Potassium 4.5. BUN 10.6. Creatinine 0.9. Troponin negative 4 * Current home cardiac medications include none REVIEW OF SYSTEMS: At the time of my exam: CONSTITUTIONAL: Denies fever or chills. HEENT: Denies blurred vision, vision changes, or eye pain. Denies hemoptysis CARDIOVASCULAR: Denies chest pain. Denies orthopnea. Denies PND. Denies palpitat ions RESPIRATORY: Denies shortness of breath. GASTROINTESTINAL: Denies abdominal pain. Denies nausea or vomiting. HEMATOLOGIC: Denies bleeding disorders. GENITOURINARY: Denies any blood in urine. SKIN: Denies pruitis. Denies rash. PHYSICAL EXAM: VITAL SIGNS: Reviewed. GENERAL: Well-developed in no acute distress. HEENT: Head is normocephalic. Pupils are equal, round. Sclerae anicteric. Mucous membranes of the mouth are moist. Neck supple. No JVD or thyromegaly LUNGS: Respirations even and unlabored. Lungs essentially clear to auscultation bilaterally. HEART: Regular rate and rhythm. S1 and S2 heard. ABDOMEN: Soft. Nondistended. Nontender. EXTREMITIES: Normal range of motion. No clubbing or cyanosis. Peripheral pulses intact. No lower extremity edema NEUROLOGIC: Awake and alert. Oriented x 3. ASSESSMENT: Dizziness Palpitations Nicotine dependence Alcohol use, patient drinks 6-12 beers per week PLAN: An acute coronary event has been ruled out Obtain 2-D echo to assess cardiac structure and function Check lipid panel and hemoglobin A1c Patient to undergo tilt table testing Smoking cessation recommended Abstinence from alcohol encouraged Recommend event monitor at patient's follow-up visit with Dr. Hidalgo Further recommendations pending patient's course Nurse practitioner note has been reviewed by physician. Signing provider agrees with the documented findings, assessment, and plan of care. Past Medical History Past Medical History: Hyperlipidemia History of Any Multi-Drug Resistant Organisms: None Reported Past Surgical History: Orthopedic Surgery Additional Past Surgical History / Comment(s): elbow Past Anesthesia/Blood Transfusion Reactions: No Reported Reaction Past Psychological History: Anxiety Smoking Status: Current every day smoker Past Alcohol Use History: Occasional Past Drug Use History: None Reported - Past Family History Mother Family Medical History: No Reported History Father Additional Family Medical History / Comment(s): Heart blockage and Parkinsons. Quadruple bypass surgery Medications and Allergies Home Medications Medication Instructions Recorded Confirmed Type Omeprazole Magnesium [PriLOSEC OTC] 20 mg PO DAILY 08/10/20 02/22/23 History Loratadine [Claritin] 10 mg PO DAILY 02/22/23 02/22/23 History Multivitamins, Thera [Multivitamin 1 tab PO DAILY 02/22/23 02/22/23 History (formulary)] Allergies Allergy/AdvReac Type Severity Reaction Status Date / Time No Known Allergies Allergy Verified 02/22/23 12:49 Physical Exam Vitals: Vital Signs Temp Pulse Pulse Resp BP BP Pulse Ox 02/23/23 02:00 98.1 F 74 15 129/68 96 02/22/23 17:54 98.2 F 88 18 126/82 98 02/22/23 12:26 98.3 F 60 18 152/80 96 Intake and Output 02/22/23 02/23/23 02/23/23 22:59 06:59 14:59 Other: # Voids 1 Weight 90.718 kg Results 02/23/23 06:19 02/23/23 06:19 Cardiac Enzymes 02/22/23 02/22/23 02/22/23 Range/Units 12:32 12:32 13:44 AST 27 (17-59) U/L Troponin I <0.012 <0.012 (0.000-0.034) ng/mL 02/22/23 02/22/23 Range/Units 16:30 21:00 AST (17-59) U/L Troponin I <0.012 <0.012 (0.000-0.034) ng/mL Coagulation 02/22/23 Range/Units 12:32 PT 10.0 (9.0-12.0) sec APTT 23.1 (22.0-30.0) sec CBC 02/22/23 Range/Units 12:32 WBC 10.3 (3.8-10.6) k/uL RBC 5.66 (4.30-5.90) m/uL Hgb 17.7 H (13.0-17.5) gm/dL Hct 51.3 (39.0-53.0) % Plt Count 245 (150-450) k/uL Comprehensive Metabolic Panel 02/22/23 Range/Units 12:32 Sodium 136 L (137-145) mmol/L Potassium 4.3 (3.5-5.1) mmol/L Chloride 105 (98-107) mmol/L Carbon Dioxide 22 (22-30) mmol/L BUN 16 (9-20) mg/dL Creatinine 0.65 L (0.66-1.25) mg/dL Glucose 121 H (74-99) mg/dL Calcium 9.8 (8.4-10.2) mg/dL AST 27 (17-59) U/L ALT 34 (4-49) U/L Alkaline Phosphatase 50 (38-126) U/L Total Protein 7.3 (6.3-8.2) g/dL Albumin 4.4 (3.5-5.0) g/dL Current Medications Generic Name Dose Route Start Last Admin Trade Name Freq PRN Reason Stop Dose Admin Acetaminophen 650 mg 02/22/23 17:00 Acetaminophen Tab 325 Mg Tab PO Q6HR PRN Mild Pain or Fever > 100.5 Alprazolam 0.25 mg 02/22/23 17:00 Alprazolam 0.25 Mg Tab PO Q6HR PRN Anxiety Calcium Carbonate/Glycine 1,000 mg 02/22/23 17:00 02/22/23 20:40 Calcium Carbonate 500 Mg Chewable PO 1,000 mg Q4HR PRN Administration Dyspepsia Enoxaparin Sodium 40 mg 02/22/23 18:45 02/22/23 19:50 Enoxaparin 40 Mg/0.4 Ml Syringe SQ 40 mg DAILY LESLEY Administration Sodium Chloride 1,000 mls @ 75 mls/hr 02/22/23 15:30 02/22/23 16:21 Saline 0.9% IV 75 mls/hr .[id number] LESLEY Administration Lactulose 20 gm 02/22/23 17:00 Lactulose 20 Gm/30 Ml Cup PO DAILY PRN Constipation Melatonin 3 mg 02/22/23 17:00 Melatonin 3 Mg Tablet PO HS PRN Insomnia Naloxone HCl 0.2 mg 02/22/23 15:16 Naloxone 0.4 Mg/Ml 1 Ml Vial IV Q2M PRN Opioid Reversal Nicotine 1 patch 02/22/23 17:00 02/22/23 17:19 Nicotine 21mg/24hr Patch TRANSDERM 1 patch DAILY LESLEY Administration Ondansetron HCl 4 mg 02/22/23 17:00 Ondansetron 4 Mg/2 Ml Vial IVP Q8HR PRN Nausea And Vomiting Intake and Output 02/22/23 02/23/23 02/23/23 22:59 06:59 14:59 Other: # Voids 1 Weight 90.718 kg 02/22/23 12:32 02/22/23 12:32
[2023-02-23] MEDS ORDERED: IV FLUID CONTINUATION 500 ML IV ONE (11:34)
--- NOTE | 2023-02-23 13:02 | P.EPPROC ---
- EP Procedure Note Electrophysiology Procedure Note: Diagnosis Presyncopal spell, possible palpitations Twelve-lead EKG shows sinus rhythm normal MN narrow QRS normal ST segments no delta waves no epsilon waves, heart rate 57 beats a minute Tilt table test protocol Baseline blood pressure 130/74 mmHg Baseline heart rate 53 beats a minute Patient was tilted upright at 9070 per protocol Heart rate and blood pressure remained normal No evidence for syncope, neurocardiogenic phenomenon or dysautonomia Impression Normal. EKG Normal heart rate and blood pressure response to upright tilting Suggest Lifestyle modification, minimize alcohol consumption Evaluate for arrhythmias Home blood pressure monitoring Recommend statins for cardio vascular risk reduction
[2023-02-23 13:46] VITALS: BP 140/81; PULSE 61; TEMP 98
--- NOTE | 2023-02-23 18:27 | CA ---
Transthoracic Echo Report Name: Trev Quintanilla Age: 57 Gender: M : 1965 Exam Date: 02/23/2023 10:10 Exam Location: [facility] Ht (in): 73 Wt (lb): 200 Ordering Physician: Desirae Guerrero Attending/Referring Phys: [id number], [employer] Kami Abraham RDCS Procedure CPT: Indications: LV function Cardiac Hx: Technical Quality: Contrast 1: Total Dose (mL): Contrast 2: Total Dose (mL): MEASUREMENTS (Male / Female) Normal Values 2D ECHO LV Diastolic Diameter PLAX 4.9 cm 4.2 - 5.9 / 3.9 - 5.3 cm LV Systolic Diameter PLAX 2.3 cm IVS Diastolic Thickness 1.3 cm 0.6 - 1.0 / 0.6 - 0.9 cm LVPW Diastolic Thickness 1.3 cm 0.6 - 1.0 / 0.6 - 0.9 cm LV Relative Wall Thickness 0.5 RV Internal Dim ED PLAX 4.1 cm LA Volume 53.4 cm??? 18 - 58 / 22 - 52 cm??? LA Volume Index 24.6 cm???/m??? 16 - 28 cm???/m??? M-MODE Aortic Root Diameter MM 3.5 cm LA Systolic Diameter MM 4.2 cm LA Ao Ratio MM 1.2 AV Cusp Separation MM 2.0 cm DOPPLER AV Peak Velocity 158.0 cm/s AV Peak Gradient 10.0 mmHg AV Mean Velocity 107.7 cm/s AV Mean Gradient 5.2 mmHg AV Velocity Time Integral 32.8 cm LVOT Peak Velocity 120.5 cm/s LVOT Peak Gradient 5.8 mmHg LVOT Velocity Time Integral 26.4 cm MV Area PHT 3.1 cm??? Mitral E Point Velocity 94.7 cm/s Mitral A Point Velocity 94.3 cm/s Mitral E to A Ratio 1.0 MV Deceleration Time 248.3 ms MV E' Velocity 8.4 cm/s Mitral E to MV E' Ratio 11.3 TR Peak Velocity 165.0 cm/s TR Peak Gradient 10.9 mmHg Right Ventricular Systolic Press 15.9 mmHg FINDINGS Left Ventricle Mildly increased left ventricular wall thickness. Left ventricular cavity size normal. Normal left ventricular systolic function with no obvious regional wall motion abnormalities. Left ventricular ejection fraction is estimated at 55-60 %. Right Ventricle Moderate right ventricular dilatation. Right ventricular systolic pressure within normal limits. Right Atrium Right atrium not well visualized. Left Atrium Normal left atrial size. Mitral Valve Structurally normal mitral valve. No mitral stenosis, regurgitation or prolapse. Aortic Valve Trileaflet aortic valve. No aortic valve stenosis or regurgitation. Tricuspid Valve Structurally normal tricuspid valve. Mild tricuspid regurgitation. Pulmonic Valve Trace pulmonic regurgitation. Pericardium No pericardial effusion. Aorta Normal size aortic root and proximal ascending aorta. CONCLUSIONS Mild LVH with preserved systolic function Mildly enlarged right ventricle No significant valvular abnormalities Previewed by: Dr. Dejan Hidalgo MD (Electronically Signed) Final Date: 23 February 2023 18:26
--- NOTE | 2023-02-23 18:51 | P.DS ---
Providers Date of admission: 02/22/23 16:17 Expected date of discharge: 02/23/23 Attending physician: Earnest Garcia Consults: 02/22/23 15:16 Consult Physician Routine Consulting Provider: Colby Robbins Consult Reason/Comments: Chest pain, angina Do you want consulting provider notified?: Yes Primary care physician: [facility] Course: Chief Complaint: Difficulty breathing This is a pleasant 57-year-old patient follows with Dr. Astorga. Patient went hunting this morning. Temperature was around 40. Was up a tree for a few hours. Then he decided to come down and go home. Office for started getting dizzy. When he got home he felt as if his finding it difficult to take a breath. Some heaviness of the chest. Decided to go to the garage and sent down. Started shaking. Became clammy. Patient has been feeling slightly off for the whole week. Also had some cramping in the legs today. Decided to come in. Over a year ago patient did have a negative stress test. Otherwise no cardiac symptoms. Patient does have slight cough. Is a smoker. February 23: Patient underwent a tilt table test today by Dr. Dejan Roland. N egative. 2-D echo unremarkable with no wall motion abnormality. EF 55-60%. Otherwise patient feeling well. Discussed with Dr. Dejan Roland. He'll follow-up the patient in the office. Started on Lipitor and aspirin. Patient's also told Dr. Dejan Roland that he drinks anywhere from 6-12 beers a day. 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 Physical examination: VITAL SIGNS: 98, 61, 16, 140/81, 97% room air GENERAL: BMI 26.4, sitting up awake but in distress. EYES: Pupils equal. Conjunctiva normal. HEENT: External appearance of nose and ears normal, oral cavity grossly normal. NECK: JVD not raised; masses not palpable. HEART: First and second heart sounds are normal; no edema. LUNGS:[ Respiratory rate normal; decreased breath sounds. ABDOMEN: Soft, nontender, liver spleen not palpable, no masses palpable. PSYCH: Alert and oriented x3; mood and affect normal. MUSCULOSKELETAL:No Clubbing/cyanosis;muscles-grossly intact INVESTIGATIONS, reviewed in the clinical context: 2-D echocardiogram: EF 55-60% Tilt table test: Unremarkable White count 10.3 hemoglobin 7.7 platelets 245 sodium 136 potassium 4.3 BUN 16 creatinine 0.65 Troponin I less than 0.0123 D-dimer 0.37 CT angiogram chest: Negative PE. Left lower lobe superior segment 9 mm pulmonary nodule. Hepatic steatosis. Gallstones. EKG tracing personally reviewed by me-normal sinus rhythm Chest x-ray film personally reviewed by me-hyperinflation Assessment plan: -Anterior chest wall pressure with clamminess. Possible unstable angina Negative troponin. EKG unremarkable. Cardiac risk factors include smoking. Seen by cardiology Dr. Dejan Roland. Tilt table: Negative -Gallstones, asymptomatic -Hepatic steatosis -COPD in a current smoker Albuterol when necessary -Chronic nicotine dependence cigarette smoke or Nicotine patch -Left lung nodule. Follow-up with Dr. Conley outpatient. Disposition: Home Past Medical History Past Medical History: Hyperlipidemia History of Any Multi-Drug Resistant Organisms: None Reported Past Surgical History: Orthopedic Surgery Additional Past Surgical History / Comment(s): elbow Past Anesthesia/Blood Transfusion Reactions: No Reported Reaction Past Psychological History: Anxiety Smoking Status: Current every day smoker Past Alcohol Use History: Occasional Past Drug Use History: None Reported - Past Family History Mother Family Medical History: No Reported History Father Additional Family Medical History / Comment(s): Heart blockage and Parkinsons. Quadruple bypass surgery Plan - Discharge Summary New Discharge Prescriptions: New Atorvastatin [Lipitor] 20 mg PO HS #30 tablet Aspirin 81 mg PO DAILY #30 tab Nicotine 21Mg/24Hr Patch [Habitrol] 1 patch TRANSDERM DAILY #14 patch Continue Loratadine [Claritin] 10 mg PO DAILY Omeprazole Magnesium [PriLOSEC OTC] 20 mg PO DAILY Multivitamins, Thera [Multivitamin (formulary)] 1 tab PO DAILY Discharge Medication List Omeprazole Magnesium [PriLOSEC OTC] 20 mg PO DAILY 08/10/20 [History] Loratadine [Claritin] 10 mg PO DAILY 02/22/23 [History] Multivitamins, Thera [Multivitamin (formulary)] 1 tab PO DAILY 02/22/23 [History] Aspirin 81 mg PO DAILY #30 tab 02/23/23 [Rx] Atorvastatin [Lipitor] 20 mg PO HS #30 tablet 02/23/23 [Rx] Nicotine 21Mg/24Hr Patch [Habitrol] 1 patch TRANSDERM DAILY #14 patch 02/23/23 [Rx] Follow up Appointment(s)/Referral(s): Michael Conley MD [STAFF PHYSICIAN] - 2 Weeks (Lung nodule) Dejan Hidalgo MD [STAFF PHYSICIAN] - 10 Days Rahul Astorga DO [Primary Care Provider] - 1-2 days Patient Instructions/Handouts: Chest Pain (DC)
== END 2023-02-23 19:15 | disposition home or self-care (01) ==
LOC: EC 11:43 → 6NMEDSUR 16:17
PROVIDERS: ADMIT Hospitalist; ATTEND Hospitalist
DX: R07.89 Other chest pain (principal); R25.2 Cramp and spasm; R05.9 Cough, unspecified; R42 Dizziness and giddiness; R61 Generalized hyperhidrosis; R00.2 Palpitations; E78.00 Pure hypercholesterolemia, unspecified; R55 Syncope and collapse; J44.9 Chronic obstructive pulmonary disease, unspecified; K21.9 Gastro-esophageal reflux disease without esophagitis; E78.5 Hyperlipidemia, unspecified; F17.210 Nicotine dependence, cigarettes, uncomplicated; K76.0 Fatty (change of) liver, not elsewhere classified; R91.1 Solitary pulmonary nodule; F41.9 Anxiety disorder, unspecified; Z82.0 Family history of epilepsy and other diseases of the nervous system; Z82.49 Family history of ischemic heart disease and other diseases of the circulatory system
CPT/HCPCS: 96372 ×2; 99285; 36415; 93005; 93306; 93660; 85379; 80061; 80053; 80048; 83735; 84484; 85025 ×2; 85610; 85730; 83036; 71046; 71275; G0378 ×2; S4990 ×2; J1650 ×2; Q9967; 96374

== ENCOUNTER → 2023-10-26 | Outpatient (CLI) | payer OTHER ==
--- NOTE | 2023-10-29 12:21 | PE ---
EXAMINATION TYPE: PET CT fusion skull to thigh DATE OF EXAM: 10/26/2023 CLINICAL INDICATION:Male, 58 years old with history of R91.1 LUNG NODULE; TECHNIQUE: Following the intravenous administration of 12.35 mCi of F-18 FDG, whole body images are performed from the skull base to the midthigh. Images are reviewed on the computer in the coronal, axial, and sagittal planes. Reconstructed rotating images are created on independent workstation and reviewed on the computer. A non-contrast CT is performed in conjunction with the PET scan. Glucose level 103 mg/dL CT DLP: 539 mGycm, Automated exposure control for dose reduction was used. COMPARISON: CT 02/22/2023, PET/CT None, FINDINGS: Mediastinal SUV mean is 2.0. Hepatic parenchyma SUV mean is 2.1. SKULL BASE AND NECK: No suspicious radiotracer activity. CHEST, MEDIASTINUM, AND HILAR REGION: No suspicious radiotracer activity. Left lower lobe superior segment pulmonary nodule measuring 9 mm Max SUV 1.0. ABDOMEN AND PELVIS: No suspicious radiotracer activity. MUSCULOSKELETAL STRUCTURES: No suspicious radiotracer activity. OTHER CT: The heart is mildly enlarged for size. There is coronary artery atherosclerosis. Hepatic st eatosis. Cholelithiasis. Colonic diverticulosis. Fat-containing umbilical hernia. prostatomegaly. Lef t fat-containing inguinal hernia. Mild centrilobular emphysema changes. IMPRESSION: 1. Left lower lobe superior segment pulmonary nodule measuring 9 mm with FDG levels below background . Surveillance imaging with CT recommended. 2. No suspicious FDG activity.
== END | disposition home or self-care (01) ==
LOC: RADPETMAIN 10:32
PROVIDERS: ATTEND Internal Medicine
DX: R91.1 Solitary pulmonary nodule (principal)
CPT/HCPCS: 78815; A9552

== ENCOUNTER → 2024-03-05 | Outpatient (CLI) | payer OTHER ==
--- NOTE | 2024-03-05 11:29 | CT ---
EXAMINATION TYPE: CT chest w con CT DLP: 413.7 mGycm, Automated exposure control for dose reduction was used. DATE OF EXAM: 03/05/2024 11:05 AM COMPARISON: PET CT 10/26/2023, CTA chest 02/22/2023 CLINICAL INDICATION:Male, 58 years old with history of R91.1 LUNG NODULE; PHH, f/u nodule TECHNIQUE: Multiple axial images were obtained through the chest following the administration of 100 cc of Isovue 300. . Coronal and sagittal reformats reviewed. FINDINGS: LUNGS/ PLEURA: No pleural effusion, pneumothorax, focal consolidation. Stable 1.1 cm solid pulmonary nodule within the superior segment of the left lower lobe (series 4, image 25). No new or enlarging p ulmonary nodules. AIRWAY: Patent and unremarkable.. HEART: Size within normal limits. No pericardial effusion. MEDIASTINUM: No gross evidence of adenopathy. VASCULATURE: No aortic aneurysm. MUSCULOSKELETAL: No acute osseous abnormalities SOFT TISSUES/LYMPH NODES: Unremarkable. LOWER NECK: No significant findings. UPPER ABDOMEN: Hepatic steatosis redemonstrated. Cholelithiasis. IMPRESSION: 1. Stable 1.1 cm left lower lobe pulmonary nodule when measurement was similar technique. No new or e nlarging pulmonary nodules. Follow-up CT chest in one year is recommended. 2. Hepatic steatosis. 3. Cholelithiasis. [facility], , 03/05/2024 11:26 AM
== END | disposition home or self-care (01) ==
LOC: RADCTMAIN 10:37
PROVIDERS: ATTEND Internal Medicine
CPT/HCPCS: 71260

== ENCOUNTER → 2024-08-30 | Outpatient (CLI) | payer OTHER ==
--- NOTE | 2024-08-30 13:58 | CT ---
CT chest with contrast. HISTORY: Pulmonary nodule. COMPARISON: 03/05/2024 TECHNIQUE: Multiple axial images were obtained through the thorax following the uneventful administra tion of nonionic IV contrast material. FINDINGS: There is a stable 11 mm nodule superior segment of the left lower lobe. There is a stable 4 to 5 mm j uxtapleural fissural nodule on the left. There is no new or suspicious lung mass or nodule. There is no pleural effusion, pleural thickening or pneumothorax. The great vessels the chest are normal. There is no mediastinal, hilar or axillary adenopathy. There is no pulmonary embolus. Limited scanning of the upper abdomen reveals moderate liver steatosis and a single laminated gallsto ne No focal osseous lesions are seen. IMPRESSION: IMPRESSION: 1. Stable 11 mm nodule left lower lobe. 2. Moderate liver steatosis. 3. Cholelithiasis. [facility], , 08/30/2024 1:56 PM
== END | disposition home or self-care (01) ==
LOC: RADCTMAIN 12:43
PROVIDERS: ATTEND Internal Medicine
DX: R91.1 Solitary pulmonary nodule (principal); K76.0 Fatty (change of) liver, not elsewhere classified; K80.20 Calculus of gallbladder without cholecystitis without obstruction
CPT/HCPCS: 71260; Q9967